=== PATIENT | male | born 1965 | race Hispanic/Latino ===

== ENCOUNTER 2018-12-15 14:10 | Inpatient (IN) | payer MEDICAID, OTHER ==
[2018-12-15 14:24] VITALS: BMI 22.5
[2018-12-15] MEDS ORDERED: Sodium Chloride 0.9% 500 ML IV STA (14:47)
--- NOTE | 2018-12-15 15:16 | ED PDOC ---
Arrival/HPI - General Chief Complaint: GI Problem Time Seen by Provider: 12/15/18 14:16 Historian: Patient - History of Present Illness Narrative History of Present Illness (Text): 12/15/18 15:08 52 year old M with pmh of Stage 4 oropharyngeal CA (diagnosed Apr 2018) presents for admission. Patient is an active smoker and drinker. Patient is being followed by Dr. Christian ears nose and throat specialist in [place] as well as Dr. Hughes. Patient was sent into the emergency room today for admission to start treatment. Pt states he has been having more difficulty swallowing. Pt states it is easier to swallow liquids. pt states he had recent PET scan. Family states that symptoms are unchanged since visit with dr. Reid on 12/08/18. Pt denies difficulty breathing. Patient denies any fevers, chills, headache, dizziness, chest pain, shortness of breath, dyspnea on exertion, cough, diaphoresis, abdominal pain, nausea, vomiting, diarrhea, back pain or any other complaint. Time/Duration: > month Symptom Onset: Sudden Symptom Course: Unchanged Activities at Onset: Light Context: Home Past Medical History - Provider Review Nursing Documentation Reviewed: Yes - Travel History Have you recently traveled outside US w/in the past 3 mons?: No - Psychiatric Hx Substance Use: No - Anesthesia Hx Anesthesia: Yes Family/Social History - Physician Review Nursing Documentation Reviewed: Yes Family/Social History: Unknown Family HX Smoking Status: Former Smoker Hx Alcohol Use: Yes Frequency of alcohol use: Socially Hx Substance Use: No Allergies/Home Meds Allergies/Adverse Reactions: Allergies No Known Allergies Allergy (Verified 12/15/18 18:08) Review of Systems - Physician Review All systems were reviewed & negative as marked: Yes - Review of Systems Constitutional: absent: Fatigue, Fevers ENT: Sore Throat. absent: Hearing Changes, Rhinorrhea, Epistaxis Respiratory: absent: SOB, Cough, Wheezing Cardiovascular: absent: Chest Pain, Palpitations, Edema, Syncope Gastrointestinal: absent: Abdominal Pain, Stool Changes, Constipation, Diarrhea, Nausea, Vomiting, Hematochezia, Hematemesis Genitourinary Male: absent: Dysuria, Hematuria Musculoskeletal: Neck Pain. absent: Arthralgias, Back Pain, Myalgias Skin: absent: Rash, Laceration Neurological: absent: Headache, Dizziness Psychiatric: Anxiety. absent: Depression, Suicidal Ideation Physical Exam Vital Signs Reviewed: Yes Vital Signs Temp Pulse Resp BP Pulse Ox 12/15/18 14:20 97.8 F 12/15/18 14:11 97.8 F 104 H 18 165/101 H 96 Temperature: Afebrile Blood Pressure: Hypertensive Pulse: Tachycardic Respiratory Rate: Normal Appearance: Positive for: Well-Appearing, Non-Toxic, Comfortable Pain Distress: None Mental Status: Positive for: Alert and Oriented X 3, other (anxious) - Systems Exam Head: Present: Atraumatic Conjunctiva: Present: Normal Mouth: Present: Moist Mucous Membranes Pharnyx: Present: Peritonsilar Swelling, Muffled/Hoarse Voice, Soft Palate/Uvular Edema, Other (there is a white plaque noted to the left posterior pharynx. ). No: Normal, Strider Neck: Present: Normal Range of Motion, Other (There is a large mass noted to the left side of the neck without surrounding erythema) Respiratory/Chest: Present: Clear to Auscultation, Good Air Exchange. No: Respiratory Distress, Accessory Muscle Use Cardiovascular: Present: Normal S1, S2, Tachycardic. No: Murmurs Abdomen: No: Tenderness Neurological: Present: GCS=15 Psychiatric: Present: Alert, Oriented x 3 Medical Decision Making ED Course and Treatment: 12/15/18 15:16 52-year-old male with oral pharyngeal cancer presenting for admission due to worsening dysphagia Plan: -- CT neck and Chest w/wo contrast -- Labs -- Xanax -- Reassess and disposition Prior Visits: Notes and results from previous visits were reviewed. Progress Notes: Case discussed with Dr. Downs in depth. Accepts admission to [facility]. Per request a CAT scan of the neck and chest with and without contrast has been ordered. CBC: WBC 18 cmp; wnl CT chest and neck; pending impression; oral pharyngeal CA, dysphagia Admit - RAD Interpretation Radiology Orders: 12/15/18 14:47 NECK & CHEST W/WO CONTRAST [CT] Stat - Medication Orders Current Medication Orders: Sodium Chloride (Sodium Chloride 0.9%) 500 mls @ 999 mls/hr IV .Q31M STA Stop: 12/15/18 15:17 Discontinued Medications Alprazolam (Xanax) 0.25 mg PO STAT STA; Protocol Stop: 12/15/18 14:48 Last Admin: 12/15/18 14:55 Dose: 0.25 mg - Scribe Statement The provider has reviewed the documentation as recorded by the Clovis Guaman All medical record entries made by the Clovis were at my direction and person ally dictated by me. I have reviewed the chart and agree that the record accurately reflects my personal performance of the history, physical exam, medical decision making, and the department course for this patient. I have also personally directed, reviewed, and agree with the discharge instructions and disposition. Disposition/Present on Arrival - Present on Arrival Any Indicators Present on Arrival: No History of DVT/PE: No History of Uncontrolled Diabetes: No Urinary Catheter: No History of Decub. Ulcer: No History Surgical Site Infection Following: None - Disposition Have Diagnosis and Disposition been Completed?: Yes Diagnosis: Dysphagia, Pharyngeal cancer, Oral-mouth cancer Disposition: HOSPITALIZED Disposition Time: 14:16 Patient Plan: Admission Patient Problems: Current Active Problems Problem Status Onset Dysphagia Acute Oral-mouth cancer Acute Pharyngeal cancer Acute Condition: GUARDED
--- NOTE | 2018-12-15 15:49 | CP.PCM.HP ---
<Lois Sylvester - Last Filed: 12/15/18 15:37> History of Present Illness - History of Present Illness History of Present Illness: Lois Sylvester, PGY-1, Internal Medicine History and Physical for Dr. Downs 52 year old male with past medical history of Head and Neck cancer, hypertension, tobacco abuse, and alcohol abuse presented status post Dr. Hughes calling his sister to bring him to the hospital for further workup and treatment of Head and Neck Cancer. Patient is originally from [place] but has been exploring treatment options in [place] as his sister lives in the area. Pat shanti reports that in July, patient started to have dysphagia to solid but not liquid and had a sharp pain in his left ear improved with position changes of his head. He associated tinnitus in that ear and reports hearing loss in his right ear. He also reports having coughing up tissue from his mouth which relieves the pain in his neck. He has now been able to eat. Patient also complains of being unsteady on his feet recently. He has had 50 pound weight loss since July. He denies any fevers or chills. In terms of the history of his Head and Neck cancer, patient initially saw Dr. Benoit in [place] who wanted to excise the tumor but patient denied wanting to have this surgery as he would have to have a tracheostomy which he did not want. As a result, he looked for other treatment options and came up to [place] for more treatment options. Upon coming to [place], he saw Dr. Reid, ENT, Dr. Hughes, Heme/Onc, and Dr. Jesus, Radiation Oncology. PET CT scan was performed on 11/11/18 at [facility] which was reported to show hypermetabolic mass/masses involving the left nasopharynx, left palatine tonsil and left side of the tongue. Patient presents to the hospital for PEG tube placement and beginning chemotherapy and radiation. 12-point ROS was unremarkable except for what was mentioned above. PMH: Hypertension, Head and Neck Cancer, Tobacco use, Alcohol use PSH: left inguinal hernia in 1988 FMHx: Father: lung cancer, Mother: breast cancer SHx: 1 PPD daily for 20-25 years. He reports daily drinking to avoid the pain. He reports occassional marijuana use Allergies: NKDA, has cat, hair, and dust allergy causing wheezing PMD: Dr. Johnston Medications: Magic Mouth Wash, was taking meloxicam before, and denies taking amlodipine at this time Pharmacy: currently [facility] [facility], but used to go to [facility] in [place], [place] Present on Admission - Present on Admission Any Indicators Present on Admission: No Review of Systems - Review of Systems Review of Systems: except for what was mentioned above Past Patient History - Past Social History Smoking Status: Former Smoker - PSYCHIATRIC Hx Substance Use: No - SURGICAL HISTORY Hx Surgeries: Yes Hx Herniorrhaphy: Yes - ANESTHESIA Hx Anesthesia: Yes Meds Allergies/Adverse Reactions: Allergies Allergy/AdvReac Type Severity Reaction Status Date / Time No Known Allergies Allergy Verified 12/15/18 18:08 Physical Exam - Constitutional Appears: Well, Non-toxic, No Acute Distress - Head Exam Head Exam: ATRAUMATIC, NORMAL INSPECTION, NORMOCEPHALIC - Eye Exam Eye Exam: EOMI, PERRL Pupil Exam: NORMAL ACCOMODATION - ENT Exam Additional comments: white plaques seen on upper palate in back on the mouth - Neck Exam Additional comments: large neck mass on left side of the head - Respiratory Exam Respiratory Exam: Clear to Auscultation Bilateral, NORMAL BREATHING PATTERN. absent: Rales, Rhonchi, Wheezes - Cardiovascular Exam Cardiovascular Exam: REGULAR RHYTHM, RRR, +S1, +S2. absent: Clicks, Gallop, Rubs - GI/Abdominal Exam GI & Abdominal Exam: Normal Bowel Sounds, Soft. absent: Distended, Firm, Guarding, Tenderness - Extremities Exam Extremities exam: Positive for: full ROM, normal inspection. Negative for: tenderness - Neurological Exam Neurological exam: Alert, CN II-XII Intact, Normal Gait, Oriented x3 - Psychiatric Exam Psychiatric exam: Normal Affect, Normal Mood - Skin Skin Exam: Dry, Intact, Normal Color Results - Vital Signs Recent Vital Signs: Last Vital Signs Temp 97.8 F 12/15/18 14:20 Pulse 104 H 12/15/18 14:11 Resp 18 12/15/18 14:11 BP 165/101 H 12/15/18 14:11 Pulse Ox 96 12/15/18 14:11 Assessment & Plan - Assessment and Plan (Free Text) Assessment: 52 year old male with past medical history of Head and Neck cancer, hypertension, tobacco abuse, and alcohol abuse presented status post Dr. Hughes calling his sister to bring him to the hospital for further workup and treatment of Head and Neck Cancer. Plan: Squamous cell carcinoma of the left tonsil -Prior PET scan from 11/10: hypermetabolic mass/masses involving the left n asopharynx, left palatine tonsil and left side of the tongue -Patient will be made NPO -Start LR at 100cc/hr -Speech and swallow evaluation -GI, Dr. Stearns, consulted for recommendations -Heme/Onc, Dr. Hughes, consulted for recommendations -Radiation Oncology, Dr. Jesus, consulted for recommendations. Hypertension -Started amlodipine 5 mg with holding parameters with SBP<100 Tobacco abuse -Counseled patient regarding dangers of tobacco use. Smoking cessation advised -Started nicotine patch DVT prophylaxis: subcutaneous heparin 5000 U Q8 Patient seen, case discussed with, and plan approved by Dr. Downs. - Date & Time Date: 12/15/18 Time: 15:52 <Sofia Downs - Last Filed: 12/16/18 14:42> Results - Vital Signs Recent Vital Signs: Last Vital Signs Temp 97.8 F 12/16/18 08:04 Pulse 84 12/16/18 08:04 Resp 20 12/16/18 08:04 BP 166/86 H 12/16/18 08:04 Pulse Ox 95 12/16/18 08:04 - Labs Result Diagrams: 12/15/18 16:20 12/15/18 16:20 Labs: Laboratory Results - last 24 hr 12/15/18 12/15/18 12/15/18 16:20 16:20 16:20 WBC 18.0 H RBC 5.17 Hgb 16.2 Hct 48.0 MCV 92.8 MCH 31.3 MCHC 33.8 RDW 13.2 Plt Count 373 MPV 9.1 Neut % (Auto) 87.0 H Lymph % (Auto) 5.6 L [place] % (Auto) 6.6 H Eos % (Auto) 0.3 L Baso % (Auto) 0.5 Lymph # (Auto) 1.0 L [place] # (Auto) 1.2 H Eos # (Auto) 0.1 Baso # (Auto) 0.09 Absolute Neuts (auto) 15.68 H PT 13.2 H INR 1.19 APTT 37.9 Sodium 140 Potassium 4.1 Chloride 102 Carbon Dioxide 28 Anion Gap 14 BUN 8 Creatinine 0.6 L Est GFR ( Amer) > 60 Est GFR (Non-Af Amer) > 60 Random Glucose 110 Hemoglobin A1c Calcium 9.4 Total Bilirubin 0.6 AST 47 ALT 28 Alkaline Phosphatase 125 Total Protein 8.0 Albumin 4.0 Globulin 4.0 Albumin/Globulin Ratio 1.0 L Triglycerides 115 Cholesterol 149 LDL Cholesterol Direct 64 HDL Cholesterol 70 H 12/15/18 16:20 WBC RBC Hgb Hct MCV MCH MCHC RDW Plt Count MPV Neut % (Auto) Lymph % (Auto) [place] % (Auto) Eos % (Auto) Baso % (Auto) Lymph # (Auto) [place] # (Auto) Eos # (Auto) Baso # (Auto) Absolute Neuts (auto) PT INR APTT Sodium Potassium Chloride Carbon Dioxide Anion Gap BUN Creatinine Est GFR ( Amer) Est GFR (Non-Af Amer) Random Glucose Hemoglobin A1c 6.4 Calcium Total Bilirubin AST ALT Alkaline Phosphatase Total Protein Albumin Globulin Albumin/Globulin Ratio Triglycerides Cholesterol LDL Cholesterol Direct HDL Cholesterol Attending/Attestation - Attestation I have personally seen and examined this patient.: Yes I have fully participated in the care of the patient.: Yes I have reviewed all pertinent clinical information: Yes Notes (Text): Attending note; patient Seen and examined with resident in ER. Patient sister by the bedside. Patient is alert and awake. Complaining of worsening of the left-sided neck swelling. Patient also complaining of increasing dysphagia. Currently tolerating liquid diets. Patient has difficulty swallowing solid food. Denies any fevers, chills. Denies any nausea, vomiting. Denies any diarrhea. Patient is a 52 year old male with past medical history of Head and Neck cancer, hypertension, tobacco abuse, and alcohol abuse getting admitted for worsening of the left-sided neck swelling and dysphagia. 1. 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 Patient was diagnosed with carcinoma in [place]. Currently patient follows up with Dr. Hughes. PET CT scan was performed on 11/11/18 showed hypermetabolic mass/masses involving the left nasopharynx, left palatine tonsil and left side of the tongue. Started on liquid diet. Aspiration precautions explained. Speech and swallow evaluation requested. Will get GI evaluation for PEG placement. 2. Case discussed with radiation oncology Dr. Jesus in detail. CT of neck and chest ordered. 3. Active smoking; smoking cessation is strongly advised . Started on NicoDerm patch. 4. Alcohol abuse; complete alcohol cessation is strongly advised. 5. Anxiety; Started on IV Ativan. The diagnosis, treatment option explained to the patient in detail. Upon discharge patient will follow-up with Dr. Hughes. 12/16/18 14:41
[2018-12-15 16:29] LABS: BASO # 0.09 K/mm3 (0.0-2.0); BASO % 0.5 % (0.0-3.0); EOS # 0.1 (0.0-0.7); EOS % 0.3 % (1.5-5.0); HEMOGLOBIN 16.2 g/dL (14.0-18.0); LYMPH % 5.6 % (22.0-35.0); MEAN CELL VOLUME 92.8 fl (80.0-105.0); MEAN CORPUSCULAR HEMOGLOBIN 31.3 pg (25.0-35.0); MEAN CORPUSCULAR HGB CONC 33.8 g/dl (31.0-37.0); MEAN PLATELET VOLUME 9.1 fl (7.0-11.0); MONO # 1.2 (0.1-0.6); MONO % 6.6 % (1.0-6.0); RBC 5.17 10^6/uL (3.5-6.1); RED CELL DISTRIBUTION WIDTH 13.2 % (11.5-14.5)
[2018-12-15 16:33] LABS: INR 1.19; PARTIAL THROMBOPLASTIN TIME 37.9 Seconds (26.9-38.3); PROTHROMBIN TIME 13.2 SECONDS (9.4-12.5)
[2018-12-15 16:36] LABS: ALT/SGPT 28 U/L (7-56); AST/SGOT 47 U/L (17-59); BLOOD UREA NITROGEN 8 mg/dL (7-21); CALCIUM 9.4 mg/dL (8.4-10.5); GFR NON-AFRICAN AMERICAN > 60; HDL CHOLESTEROL 70 mg/dL (29-60)
[2018-12-15 16:47] LABS: LDL CHOLESTEROL 64 mg/dL (0-129)
[2018-12-15] MEDS: Lactated Ringer's 1,000 ML IV SCH (17:11)
[2018-12-15] MEDS ORDERED: Albuterol-Ipratrop 3 mg / 0.5 (3 ml) UD IH PRN (18:10)
[2018-12-15] MEDS ORDERED: Acetaminophen 160 mg/5 ml UD PO PRN (19:53)
--- NOTE | 2018-12-15 21:16 | CARD ---
APPROVED REPORT Date of service: 12/15/2018 EKG Measurement Heart [id number] <Conclusion> Sinus tachycardia Left axis deviation Abnormal ECG
[2018-12-15] MEDS ORDERED: Pneumococcal 23-Valent Vaccine IM ONE (21:18)
--- NOTE | 2018-12-16 03:35 | CON ---
DATE: 12/15/2018 This is [facility] consult on the medical floor. For Dr. Hughes. CHIEF COMPLAINT: Head and neck cancer. HISTORY OF PRESENT ILLNESS: The patient is a 52-year-old male with recently diagnosed head and neck cancer at advanced stage for which he is now admitted for initiation of active treatment including radiation and chemotherapy as per Dr. Hughes's protocols. The patient had initially been diagnosed while residing in the [facility], but was not amenable to treatment at that time since the tracheostomy was recommended by his clinician there. To this end, the patient's PET/CT scan was done on 11/11/2018 with the copy now uploaded into the [employer] system for review with the patient now reporting weight loss of approximately 30 pounds with significant discomfort to the left side of his mouth and neck. Unfortunately, the patient reports to significant smoking history and continues to smoke with the patient admitting to drinking Jovan Bulter and beer on a daily basis. He is seen at the bedside with family members with questions answered as above. PAST MEDICAL HISTORY: Significant for hernia repair in 1988, hypertension; otherwise, denied. FAMILY HISTORY: Father of lung cancer. Mother of breast cancer. His sister is at the bedside. SOCIAL HISTORY: He smokes one pack a day for approximately 25 years with alcohol use as mentioned above. Occasional marijuana use. ALLERGIES: NO KNOWN ALLERGIES EXCEPT FOR DUST AND FUR. MEDICATIONS: At this point include amlodipine, meloxicam, and Magic Mouthwash. REVIEW OF SYSTEMS: A 12-point review of systems was done, which is negative to questioning except for items mentioned in the history of present illness. PHYSICAL EXAMINATION: VITAL SIGNS: Temperature 97.8, pulse 89, respirations 18, blood pressure 164/94, and pulse ox 93%. HEENT: Mass at the left side of the neck and head, firm and nontender. Also difficulty opening the oropharynx with plaques and palate on the left side of his mouth with minimal peritonsillar swelling. Speaks in a muffled hoarse voice. No stridor. HEART: Regular rate. LUNGS: Clear. ABDOMEN: Soft and nontender. EXTREMITIES: No edema. SKIN: Warm and dry. NEUROLOGIC: Awake and alert with voice change as above. LABORATORY DATA: The patient's labs were done. White blood cell count 18, hemoglobin of 16.2, hematocrit of 48, and platelet count of 373,000 with an INR of 1.19. Metabolic panel within normal range. The patient did have an EKG done that has not been read. Soft tissue scan of the neck is also pending along with CT scan of the chest pending. PET/CT scan results were uploaded into [employer] and recommended to review the results with the unfortunate hypermetabolic mass involving the left nasopharynx, left palatine tonsil, left side of the tongue. ASSESSMENT: For this patient is that of head and neck cancer involving left nasopharynx, left palatine tonsils, and tongue, hypertension, failure to thrive, alcohol abuse, nicotine abuse, insomnia, and anxiety. PLAN: After conversation with Dr. Hughes, conversation at length with the patient and his family members as per consults with Radiation Oncology Dr. Yuliet Jesus, Dr. Stearns for PEG tube placement, Dr. Ervin of ears, nose, throat, associate of Dr. Reid, and also Dr. Hassan of Pulmonary. We will continue his present medical regimen; however, we will recommend Librium every 12 hours with Ativan IV for breakthrough possible withdrawal from alcohol along with vitamin B1, folic acid with morphine IV every 6 hours for severe pain along with Tylenol liquid for mild pain with the patient being able to take medications orally with sips of water as indicated; otherwise, n.p.o. We will wait for results of testing as above with further recommendations as indicated with PEG tube placement for nutrition as indicated. We will discontinue the heparin as the patient is ambulatory at this time with consideration to restart it at a later time should have been indicated with nicotine patch to continue for his nicotine cessation with EtOH withdrawal precautions. This is a complex patient with a comprehensive medically necessary and appropriate visit carried out in excess of 60 minutes with the patient and family members questions answered to their satisfaction. Leonardo Ramírez MD
[2018-12-16] MEDS: Lactated Ringer's 1,000 ML IV SCH (05:48)
--- NOTE | 2018-12-16 08:55 | CP.PCM.CON ---
History of Present Illness - History of Present Illness History of Present Illness: Mr Wang is known to our department. We saw him officially in consult on November 12, 2018 for his head and neck cancer. He initially presented in April of 2018 with whitish substance and swelling on the left tonsil. He reached out to an online physician who stated it was thrush. The doctor recommended antifungal, and the patient reported slight improvement. However, once the antifungal finished, the whitish substance return ed. The online doctor wanted more money for the prescription refill which he did not want to do. Over the subsequent months, he had increasing swelling of the left tonsil as well as swelling of the left soft palate and left oral tongue. He also was having pain in the left ear with swallowing. Also at that point, he saw an ENT doctor in [place]. The ENT physician performed a FNA on October 04, 2018 which revealed atypical cells. He recommended him to an oncologist. However, he decided at that point to come to [place] where his sister lives to seek further medical attention. On examination with Dr Reid, he had a left level II-IV lymph node as well as a mass in the left tonsillar region with extension to the soft palate and base of tongue. He refused a repeat biopsy of the mass. A PET scan in [place] on November 11, 2018 revealed a hypermetabolic mass in the left nasopharynx, left palatine tonsil and left side of the tongue. When we last saw him, he and his family was trying to get insurance since he is not from [place] and did not have insurance. He is currently in the process of getting coverage. He is admitted with worsening symptoms and progression from his disease. He had a CT of the neck and chest since he was admitted yesterday because his PET scan was done a few months prior and he has had obvious progression Review of Systems - Constitutional Constitutional: Weight Loss - EENT Nose/Mouth/Throat: Odynophagia, Sore Throat Past Patient History - Past Social History Smoking Status: Former Smoker Alcohol: None Home Situation {Lives}: With Family - CARDIAC Hx Cardiac Disorders: Yes Hx Hypertension: Yes - PULMONARY Hx Respiratory Disorders: No - NEUROLOGICAL Hx Neurological Disorder: Yes - HEENT Hx HEENT Problems: Yes Hx Deafness: Yes (R EAR) - RENAL Hx Chronic Kidney Disease: No - ENDOCRINE/METABOLIC Hx Endocrine Disorders: No - HEMATOLOGICAL/ONCOLOGICAL Hx Blood Disorders: Yes Hx Cancer: Yes (OROPHARYNGEAL CA PLAN FOR PEG PLACEMENT) - INTEGUMENTARY Hx Dermatological Problems: Yes Other/Comment: 12-15 LARGE MASS L SIDE OF NECK W/SURROUNDING ERYTHEMA. - MUSCULOSKELETAL/RHEUMATOLOGICAL Hx Musculoskeletal Disorders: No Hx Falls: No - GASTROINTESTINAL Hx Gastrointestinal Disorders: Yes (L INGUINAL HERNIA WITH HERNIORHAPPHY) HX Swallowing Problems: Yes - GENITOURINARY/GYNECOLOGICAL Hx Genitourinary Disorders: No - PSYCHIATRIC Hx Psychophysiologic Disorder: No Hx Substance Use: Yes (OCCASIONAL MARIJUANA) - SURGICAL HISTORY Hx Surgeries: Yes - ANESTHESIA Hx Anesthesia: Yes Meds Allergies/Adverse Reactions: Allergies Allergy/AdvReac Type Severity Reaction Status Date / Time No Known Allergies Allergy Verified 12/15/18 18:08 - Medications Medications: Current Medications Acetaminophen (Tylenol 160mg/5ml Oral Soln) 320 mg PO Q4 PRN PRN Reason: Pain, Mild (1-3) Albuterol/Ipratropium (Duoneb 3 Mg/0.5 Mg (3 Ml) Ud) 3 ml IH Q4 PRN PRN Reason: Shortness of Breath Amlodipine Besylate (Norvasc) 5 mg PO DAILY [facility] Chlordiazepoxide (Librium) 10 mg PO Q12 AYESHA; Protocol Last Admin: 12/15/18 21:39 Dose: Not Given Folic Acid (Folic Acid) 1 mg PO DAILY [facility] Lactated Ringer's (Lactated Ringer's) 1,000 mls @ 100 mls/hr IV .Q10H [facility] Last Admin: 12/16/18 05:48 Dose: 100 mls/hr Lorazepam (Ativan) 0.5 mg IVP Q8 PRN; Protocol PRN Reason: Anxiety Morphine Sulfate (Morphine) 2 mg IVP Q6H PRN PRN Reason: Pain, severe (8-10) Nicotine (Nicoderm Cq) 1 patch TD DAILY PRN PRN Reason: URGE TO SMOKE Last Admin: 12/15/18 16:54 Dose: 1 patch Pantoprazole Sodium (Protonix Inj) 40 mg IVP DAILY [facility] Thiamine HCl (Vitamin B1 Tab) 100 mg PO BID [facility] Last Admin: 12/15/18 21:38 Dose: 100 mg Zolpidem Tartrate (Ambien) 5 mg PO HS PRN; Protocol PRN Reason: Insomnia Last Admin: 12/15/18 22:16 Dose: 5 mg Physical Exam - ENT Exam Additional comments: erosive mass involving the left tonsillar fossa, base of tongue and extending to the soft palate. There is edema of the left oral tongue but no induration anteriorly. - Neck Exam Additional comments: large left neck mass measuring 9 x 9cm in the level II-III region - Respiratory Exam Respiratory Exam: Clear to Auscultation Bilateral - Cardiovascular Exam Cardiovascular Exam: REGULAR RHYTHM - GI/Abdominal Exam GI & Abdominal Exam: Normal Bowel Sounds - Neurological Exam Neurological exam: Oriented x3 Results - Vital Signs Recent Vital Signs: Last Vital Signs Temp 97.8 F 12/16/18 08:04 Pulse 84 12/16/18 08:04 Resp 20 12/16/18 08:04 BP 166/86 H 12/16/18 08:04 Pulse Ox 95 12/16/18 08:04 - Labs Result Diagrams: 12/15/18 16:20 12/15/18 16:20 Labs: Laboratory Results - last 24 hr 12/15/18 12/15/18 12/15/18 16:20 16:20 16:20 WBC 18.0 H RBC 5.17 Hgb 16.2 Hct 48.0 MCV 92.8 MCH 31.3 MCHC 33.8 RDW 13.2 Plt Count 373 MPV 9.1 Neut % (Auto) 87.0 H Lymph % (Auto) 5.6 L Dawson % (Auto) 6.6 H Eos % (Auto) 0.3 L Baso % (Auto) 0.5 Lymph # (Auto) 1.0 L Dawson # (Auto) 1.2 H Eos # (Auto) 0.1 Baso # (Auto) 0.09 Absolute Neuts (auto) 15.68 H PT 13.2 H INR 1.19 APTT 37.9 Sodium 140 Potassium 4.1 Chloride 102 Carbon Dioxide 28 Anion Gap 14 BUN 8 Creatinine 0.6 L Est GFR ( Amer) > 60 Est GFR (Non-Af Amer) > 60 Random Glucose 110 Calcium 9.4 Total Bilirubin 0.6 AST 47 ALT 28 Alkaline Phosphatase 125 Total Protein 8.0 Albumin 4.0 Globulin 4.0 Albumin/Globulin Ratio 1.0 L Triglycerides 115 Cholesterol 149 LDL Cholesterol Direct 64 HDL Cholesterol 70 H Assessment & Plan - Assessment and Plan (Free Text) Assessment: Mr Wang is a 52 year old man with a locally advanced oropharyngeal cancer. He had a repeat CT of the neck and chest to assess the extent of his disease since he has not had treatment since we saw him last in October due to insurance issues because he is not from [place]. He is having worsening symptoms and obvious disease progression. He will be getting PEG tube. We simulated him today, and will coordinate his chemoradiation with Dr Hughes.
[2018-12-16] MEDS ORDERED: guaiFENesin-Codeine 100-10mg/5ml Syrup (5 ml) UD PO PRN (10:28)
--- NOTE | 2018-12-16 11:48 | CP.PCM.PN ---
<Lois Sylvester - Last Filed: 12/16/18 11:45> Subjective - Date & Time of Evaluation Date of Evaluation: 12/16/18 Time of Evaluation: 11:45 - Subjective Subjective: Lois Sylvester, PGY-1, Internal Medicine Progress Note for Dr. Downs Patient seen and evaluated at bedside. Patient had no acute overnight events. Patient reports inability to sleep last night and left ear pain. Patient also had cough at bedside, but did not have any sputum production. Patient denies any other symptoms at this time. Patient is claustrophobic and as a result, will give patient 1 mg of ativan prior to imaging today. 12-point ROS was unrema rkable except for what was mentioned above. Objective - Vital Signs/Intake and Output Vital Signs (last 24 hours): Temp Pulse Resp BP Pulse Ox 97.8 F 84 20 166/86 H 95 12/16/18 08:04 12/16/18 08:04 12/16/18 08:04 12/16/18 08:04 12/16/18 08:04 Intake and Output: 12/16/18 12/16/18 06:59 18:59 Intake Total 1860 Balance 1860 - Medications Medications: Current Medications Acetaminophen (Tylenol 160mg/5ml Oral Soln) 320 mg PO Q4 PRN PRN Reason: Pain, Mild (1-3) Albuterol/Ipratropium (Duoneb 3 Mg/0.5 Mg (3 Ml) Ud) 3 ml IH Q4 PRN PRN Reason: Shortness of Breath Amlodipine Besylate (Norvasc) 5 mg PO DAILY [facility] Last Admin: 12/16/18 10:20 Dose: 5 mg Chlordiazepoxide (Librium) 10 mg PO Q12 [facility]; Protocol Last Admin: 12/16/18 11:00 Dose: Not Given Folic Acid (Folic Acid) 1 mg PO DAILY [facility] Last Admin: 12/16/18 10:19 Dose: 1 mg Guaifenesin/Codeine Phosphate (Robitussin W/Codeine) 5 ml PO Q4H PRN PRN Reason: Cough and congestion Lorazepam (Ativan) 0.5 mg IVP Q8 PRN; Protocol PRN Reason: Anxiety Last Admin: 12/16/18 10:17 Dose: 0.5 mg Morphine Sulfate (Morphine) 2 mg IVP Q6H PRN PRN Reason: Pain, severe (8-10) Nicotine (Nicoderm Cq) 1 patch TD DAILY PRN PRN Reason: URGE TO SMOKE Last Admin: 12/16/18 10:19 Dose: 1 patch Pantoprazole Sodium (Protonix Inj) 40 mg IVP DAILY [facility] Last Admin: 12/16/18 10:20 Dose: 40 mg Thiamine HCl (Vitamin B1 Tab) 100 mg PO BID [facility] Last Admin: 12/16/18 10:20 Dose: 100 mg Zolpidem Tartrate (Ambien) 5 mg PO HS PRN; Protocol PRN Reason: Insomnia Last Admin: 12/15/18 22:16 Dose: 5 mg - Labs Labs: 12/15/18 16:20 12/15/18 16:20 PT 13.2 SECONDS (9.4-12.5) H 12/15/18 16:20 INR 1.19 12/15/18 16:20 APTT 37.9 Seconds (26.9-38.3) 12/15/18 16:20 - Constitutional Appears: Well, Non-toxic, No Acute Distress - Head Exam Head Exam: ATRAUMATIC, NORMAL INSPECTION, NORMOCEPHALIC - Eye Exam Eye Exam: EOMI, PERRL Pupil Exam: NORMAL ACCOMODATION - ENT Exam Additional comments: white plaques seen on upper palate in back on the mouth - Neck Exam Additional comments: large neck mass on left side of the head - Respiratory Exam Respiratory Exam: Clear to Auscultation Bilateral, NORMAL BREATHING PATTERN. absent: Rales, Rhonchi, Wheezes - Cardiovascular Exam Cardiovascular Exam: REGULAR RHYTHM, RRR, +S1, +S2. absent: Clicks, Gallop, Rubs - GI/Abdominal Exam GI & Abdominal Exam: Normal Bowel Sounds, Soft. absent: Distended, Firm, Guarding, Tenderness - Extremities Exam Extremities exam: Positive for: full ROM, normal inspection. Negative for: tenderness - Neurological Exam Neurological exam: Alert, CN II-XII Intact, Normal Gait, Oriented x3 - Psychiatric Exam Psychiatric exam: Normal Affect, Normal Mood - Skin Skin Exam: Dry, Intact, Normal Color Assessment and Plan - Assessment and Plan (Free Text) Assessment: 52 year old male with past medical history of Head and Neck cancer, hypertension, tobacco abuse, and alcohol abuse presented status post Dr. Hughes calling his sister to bring him to the hospital for further workup and treatment of Head and Neck Cancer. Plan: Squamous cell carcinoma of the left tonsil -Prior PET scan from 11/10: hypermetabolic mass/masses involving the left nasopharynx, left palatine tonsil and left side of the tongue -CT Neck with and without IV contrast 12/15: left oral pharyngeal/left supraglottic malignancy. Additional large neoplasm in the soft tissues of the left neck with possible cystic necrotic lymphadenopathy, atheromatous plaquing in the carotid bulbs and origins of the ICAs bilaterally. Evidence of advanced degenerative disc disease at C5-6, C6-7, and C7-T1 -Chest CT 12/15: unremarkable -MRI of orbit, face, and neck ordered for further evaluation of tumor -Patient currently on Clear liquid diet -Speech and swallow evaluation ordered -Started robitussin with codeine Q4PRN for pain and congestion -Continue morphine 2 mg Q6PRN for breakthrough pain -Plan is for PEG tube evaluation with Dr. Stearns -Chemoradiation will be coordinated with Dr. Hughes and Dr. Jesus -GI, Dr. Stearns, consulted for recommendations -Heme/Onc, Dr. Hughes, consulted for recommendations -Radiation Oncology, Dr. Jesus, consulted for recommendations. -ENT, Dr. Ervin, consulted for further recommendations. -IR, Dr. Sifuentes, consulted for further recommendations. -Pulmonology, Dr. Hassan, consulted for further recommendations. Hypertension -Continue amlodipine 5 mg with holding parameters with SBP<100 Tobacco abuse -Counseled patient regarding dangers of tobacco use. Smoking cessation advised -Continue nicotine patch Rule out alcohol withdrawal -Patient's CIWA has been 0 -Continue librium 10 mg Q12 and ativan 0.5 mg Q8PRN for withdrawal symptoms -Continue with thiamine, folate, and MVI Insomnia -Ambien 5 mg HS PRN for insomnia Shortness of breath 2/2 to likely COPD -Continue duonebs Q4PRN DVT prophylaxis: not indicated GI prophylaxis: protonix 40 mg daily Patient seen, case discussed with, and plan approved by Dr. Downs. <Sofia Downs - Last Filed: 12/16/18 15:49> Objective - Vital Signs/Intake and Output Vital Signs (last 24 hours): Temp Pulse Resp BP Pulse Ox 97.8 F 84 20 166/86 H 95 12/16/18 08:04 12/16/18 08:04 12/16/18 08:04 12/16/18 08:04 12/16/18 08:04 Intake and Output: 12/16/18 12/16/18 06:59 18:59 Intake Total 1860 Balance 1860 - Medications Medications: Current Medications Acetaminophen (Tylenol 160mg/5ml Oral Soln) 320 mg PO Q4 PRN PRN Reason: Pain, Mild (1-3) Albuterol/Ipratropium (Duoneb 3 Mg/0.5 Mg (3 Ml) Ud) 3 ml IH Q4 PRN PRN Reason: Shortness of Breath Amlodipine Besylate (Norvasc) 5 mg PO DAILY [facility] Last Admin: 12/16/18 10:20 Dose: 5 mg Arformoterol Tartrate (Brovana) 15 mcg IH [id number] [facility] Budesonide (Pulmicort Respules) 0.5 mg IH [id number] [facility] Chlordiazepoxide (Librium) 10 mg PO Q12 [facility]; Protocol Last Admin: 12/16/18 11:00 Dose: Not Given Fluticasone Propionate (Flonase) 1 actuation NS HS [facility] Folic Acid (Folic Acid) 1 mg PO DAILY [facility] Last Admin: 12/16/18 10:19 Dose: 1 mg Guaifenesin/Codeine Phosphate (Robitussin W/Codeine) 5 ml PO Q4H PRN PRN Reason: Cough and congestion Lorazepam (Ativan) 0.5 mg IVP Q8 PRN; Protocol PRN Reason: Anxiety Last Admin: 12/16/18 10:17 Dose: 0.5 mg Montelukast Sodium (Singulair) 10 mg PO HS [facility] Morphine Sulfate (Morphine) 2 mg IVP Q6H PRN PRN Reason: Pain, severe (8-10) Multivitamins/Vitamin C (Multi-Delyn Liquid) 15 ml PO 0800 [facility] Nicotine (Nicoderm Cq) 1 patch TD DAILY PRN PRN Reason: URGE TO SMOKE Last Admin: 12/16/18 10:19 Dose: 1 patch Pantoprazole Sodium (Protonix Inj) 40 mg IVP DAILY [facility] Last Admin: 12/16/18 10:20 Dose: 40 mg Thiamine HCl (Vitamin B1 Tab) 100 mg PO BID [facility] Last Admin: 12/16/18 10:20 Dose: 100 mg Zolpidem Tartrate (Ambien) 5 mg PO HS PRN; Protocol PRN Reason: Insomnia Last Admin: 12/15/18 22:16 Dose: 5 mg - Labs Labs: 12/15/18 16:20 12/15/18 16:20 PT 13.2 SECONDS (9.4-12.5) H 12/15/18 16:20 INR 1.19 12/15/18 16:20 APTT 37.9 Seconds (26.9-38.3) 12/15/18 16:20 Attending/Attestation - Attestation I have personally seen and examined this patient.: Yes I have fully participated in the care of the patient.: Yes I have reviewed all pertinent clinical information, including history, physical exam and plan: Yes Notes (Text): 12/16/18 14:44 Attending note; patient Seen and examined with resident. Patient is alert and awake. Still complaining of dysphagia. currently tolerating liquid diets. Denies any fevers, chills. Denies any nausea, vomiting. Patient is a 52 year old male with past medical history of Head and Neck cancer, hypertension, tobacco abuse, and alcohol abuse getting admitted for worsening of the left-sided neck swelling and dysphagia. 1. 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 Patient was diagnosed with carcinoma in [place] in June. Currently patient follows up with Dr. Hughes. PET CT scan was performed on 11/11/18 showed hypermetabolic mass/masses involving the left nasopharynx, left palatine tonsil and left side of the tongue. Started on liquid diet. Aspiration precautions explained. Speech and swallow evaluation appreciated. Started on pured diet. GI evaluation appreciated. Plan for PEG placement tomorrow. 2. Case discussed with radiation oncology Dr. Jesus in detail. CT of neck and chest showed diffused centrilobar emphysema and large left oropharyngeal mass with multiple metastatic lymph nodes. MRI of the face and orbit ordered. 3. Active smoking; smoking cessation is strongly advised . Started on NicoDerm patch. 4. Alcohol abuse; complete alcohol cessation is strongly advised. 5. Anxiety; Started on IV Ativan. 6. Pain management with IV morphine. Robitussin with codeine ordered. The diagnosis, treatment option explained to the patient in detail. Upon discharge patient will follow-up with Dr. Hughes.
--- NOTE | 2018-12-16 12:54 | CT ---
Date of service: 12/15/2018 PROCEDURE: CT chest without and with intravenous contrast. HISTORY: LEFT SIDED ORAL PHARYNGEAL CA COMPARISON: None available. INDICATION: Oropharyngeal carcinoma TECHNIQUE: Contiguous axial images were obtained through the chest before and after intravenous contrast enhancement. Sagittal and coronal reconstructions were performed. IV contrast: 150 mL Omnipaque 350 Radiation dose: Total exam DLP = 1408.27 mGy-cm. This CT exam was performed using one or more of the following dose reduction techniques: Automated exposure control, adjustment of the mA and/or kV according to patient size, and/or use of iterative reconstruction technique FINDINGS: LUNGS: The lungs are hyperinflated and there is diffuse centrilobular emphysema in the lungs. There is bibasilar atelectasis. There are scattered tiny peripheral nodules in both lungs. There are no endobronchial lesions. MEDIASTINUM: There aneurysm of the ascending aorta measuring 4.6 x 4.2 cm. Normal sized heart. Main pulmonary artery unremarkable. No vascular congestion. No lymphadenopathy. There are aortic atherosclerotic calcifications present. PLEURA: No pleural fluid. No pneumothorax. BONES: No fracture. No destructive lesion. Multilevel degenerative changes in the spine UPPER ABDOMEN: There is a 1.3 cm adenoma in the left adrenal gland. There is an incompletely imaged simple cyst in the left kidney. OTHER FINDINGS: None. IMPRESSION: 1. Diffuse centrilobular emphysema in the lungs. Scattered tiny peripheral nodules in the lungs are likely post inflammatory in etiology. 2. Aneurysm of the ascending aorta measuring 4.6 x 4.2 cm. A preliminary report was provided by [employer]. The final report is tagged to the [place] review folder.
--- NOTE | 2018-12-16 13:16 | CP.PCM.CON ---
<Franklin Laneg - Last Filed: 12/16/18 16:33> History of Present Illness - History of Present Illness History of Present Illness: PGY6 GI Fellow Consult Note Patient is a 52yo male with PMHX significant for squamous cell carcinoma of the tongue, tonsil and nasopharynx as well as hypertension and tobacco/EtOH abuse who presented to the hospital as the recommendation of his oncologist for dete rioration /2 his known oropharyngeal malignancy. Patient's initial work up took place in [place] prior to moving to [place]. He first noticed odynophagia/dysphagia in April 2018 and was noted to have white plaques on the posterior pharynx. Following a course of antifungal therapy he only had modest improvement and symptoms recurred. He then developed swelling of the left tonsil and tongue associated with left ear pain and tinnitus. He was worked up by an ENT with FNA of the lesion revealing atypical cells and was referred to an oncologist which he has done since moving to [place]. Since July he notes a 50lb weight loss and progressive dysphagia to solids and liquids. Currently, he tolerates liquids if he drinks slowly. Our service has been consulted for PEG evaluation. 12 system ROS performed and negative except where stated PMHx: See HPI PSHx: Left inguinal hernia repair FHx: Mother - breast cancer; Father - lung cancer Social: +tobacco and EtOH use daily, occasional marijuana use Endo: No prior endoscopic evaluations Past Patient History - Past Social History Smoking Status: Former Smoker Alcohol: None Home Situation {Lives}: With Family - CARDIAC Hx Cardiac Disorders: Yes Hx Hypertension: Yes - PULMONARY Hx Respiratory Disorders: No - NEUROLOGICAL Hx Neurological Disorder: Yes - HEENT Hx HEENT Problems: Yes Hx Deafness: Yes (R EAR) - RENAL Hx Chronic Kidney Disease: No - ENDOCRINE/METABOLIC Hx Endocrine Disorders: No - HEMATOLOGICAL/ONCOLOGICAL Hx Blood Disorders: Yes Hx Cancer: Yes (OROPHARYNGEAL CA PLAN FOR PEG PLACEMENT) - INTEGUMENTARY Hx Dermatological Problems: Yes Other/Comment: 5 19 LARGE MASS L SIDE OF NECK W/SURROUNDING ERYTHEMA. - MUSCULOSKELETAL/RHEUMATOLOGICAL Hx Musculoskeletal Disorders: No Hx Falls: No - GASTROINTESTINAL Hx Gastrointestinal Disorders: Yes (L INGUINAL HERNIA WITH HERNIORHAPPHY) HX Swallowing Problems: Yes - GENITOURINARY/GYNECOLOGICAL Hx Genitourinary Disorders: No - PSYCHIATRIC Hx Psychophysiologic Disorder: No Hx Substance Use: Yes (OCCASIONAL MARIJUANA) - SURGICAL HISTORY Hx Surgeries: Yes - ANESTHESIA Hx Anesthesia: Yes Meds Allergies/Adverse Reactions: Allergies Allergy/AdvReac Type Severity Reaction Status Date / Time No Known Allergies Allergy Verified 12/15/18 18:08 - Medications Medications: Current Medications Acetaminophen (Tylenol 160mg/5ml Oral Soln) 320 mg PO Q4 PRN PRN Reason: Pain, Mild (1-3) Albuterol/Ipratropium (Duoneb 3 Mg/0.5 Mg (3 Ml) Ud) 3 ml IH Q4 PRN PRN Reason: Shortness of Breath Amlodipine Besylate (Norvasc) 5 mg PO DAILY [facility] Last Admin: 12/16/18 10:20 Dose: 5 mg Arformoterol Tartrate (Brovana) 15 mcg IH [id number] [facility] Budesonide (Pulmicort Respules) 0.5 mg IH [id number] [facility] Chlordiazepoxide (Librium) 10 mg PO Q12 [facility]; Protocol Last Admin: 12/16/18 11:00 Dose: Not Given Fluticasone Propionate (Flonase) 1 actuation NS HS [facility] Folic Acid (Folic Acid) 1 mg PO DAILY [facility] Last Admin: 12/16/18 10:19 Dose: 1 mg Guaifenesin/Codeine Phosphate (Robitussin W/Codeine) 5 ml PO Q4H PRN PRN Reason: Cough and congestion Lorazepam (Ativan) 0.5 mg IVP Q8 PRN; Protocol PRN Reason: Anxiety Last Admin: 12/16/18 10:17 Dose: 0.5 mg Montelukast Sodium (Singulair) 10 mg PO HS [facility] Morphine Sulfate (Morphine) 2 mg IVP Q6H PRN PRN Reason: Pain, severe (8-10) Multivitamins/Vitamin C (Multi-Delyn Liquid) 15 ml PO 0800 [facility] Nicotine (Nicoderm Cq) 1 patch TD DAILY PRN PRN Reason: URGE TO SMOKE Last Admin: 12/16/18 10:19 Dose: 1 patch Pantoprazole Sodium (Protonix Inj) 40 mg IVP DAILY [facility] Last Admin: 12/16/18 10:20 Dose: 40 mg Thiamine HCl (Vitamin B1 Tab) 100 mg PO BID [facility] Last Admin: 12/16/18 10:20 Dose: 100 mg Zolpidem Tartrate (Ambien) 5 mg PO HS PRN; Protocol PRN Reason: Insomnia Last Admin: 12/15/18 22:16 Dose: 5 mg Physical Exam - Constitutional Appears: No Acute Distress, Chronically Ill - Eye Exam Eye Exam: EOMI, PERRL - ENT Exam ENT Exam: Mucous Membranes Moist Additional comments: swelling on left lateral neck - Respiratory Exam Respiratory Exam: Clear to Auscultation Bilateral. absent: Rales, Rhonchi, Whe ezes - Cardiovascular Exam Cardiovascular Exam: RRR, +S1, +S2 - GI/Abdominal Exam GI & Abdominal Exam: Normal Bowel Sounds, Soft. absent: Distended, Firm, Guarding, Organomegaly, Rigid, Tenderness - Extremities Exam Extremities exam: Positive for: normal inspection. Negative for: pedal edema - Neurological Exam Neurological exam: Alert, Oriented x3 - Psychiatric Exam Psychiatric exam: Normal Affect, Normal Mood - Skin Skin Exam: Dry, Warm Results - Vital Signs Recent Vital Signs: Last Vital Signs Temp 97.8 F 12/16/18 08:04 Pulse 84 12/16/18 08:04 Resp 20 12/16/18 08:04 BP 166/86 H 12/16/18 08:04 Pulse Ox 95 12/16/18 08:04 - Labs Result Diagrams: 12/15/18 16:20 12/15/18 16:20 Labs: Laboratory Results - last 24 hr 12/15/18 12/15/18 12/15/18 16:20 16:20 16:20 WBC 18.0 H RBC 5.17 Hgb 16.2 Hct 48.0 MCV 92.8 MCH 31.3 MCHC 33.8 RDW 13.2 Plt Count 373 MPV 9.1 Neut % (Auto) 87.0 H Lymph % (Auto) 5.6 L [place] % (Auto) 6.6 H Eos % (Auto) 0.3 L Baso % (Auto) 0.5 Lymph # (Auto) 1.0 L [place] # (Auto) 1.2 H Eos # (Auto) 0.1 Baso # (Auto) 0.09 Absolute Neuts (auto) 15.68 H PT 13.2 H INR 1.19 APTT 37.9 Sodium 140 Potassium 4.1 Chloride 102 Carbon Dioxide 28 Anion Gap 14 BUN 8 Creatinine 0.6 L Est GFR ( Amer) > 60 Est GFR (Non-Af Amer) > 60 Random Glucose 110 Hemoglobin A1c Calcium 9.4 Total Bilirubin 0.6 AST 47 ALT 28 Alkaline Phosphatase 125 Total Protein 8.0 Albumin 4.0 Globulin 4.0 Albumin/Globulin Ratio 1.0 L Triglycerides 115 Cholesterol 149 LDL Cholesterol Direct 64 HDL Cholesterol 70 H 12/15/18 16:20 WBC RBC Hgb Hct MCV MCH MCHC RDW Plt Count MPV Neut % (Auto) Lymph % (Auto) [place] % (Auto) Eos % (Auto) Baso % (Auto) Lymph # (Auto) [place] # (Auto) Eos # (Auto) Baso # (Auto) Absolute Neuts (auto) PT INR APTT Sodium Potassium Chloride Carbon Dioxide Anion Gap BUN Creatinine Est GFR ( Amer) Est GFR (Non-Af Amer) Random Glucose Hemoglobin A1c 6.4 Calcium Total Bilirubin AST ALT Alkaline Phosphatase Total Protein Albumin Globulin Albumin/Globulin Ratio Triglycerides Cholesterol LDL Cholesterol Direct HDL Cholesterol Assessment & Plan - Assessment and Plan (Free Text) Assessment: Patient is a 52yo male with PMHX significant for squamous cell carcinoma of the tongue, tonsil and nasopharynx as well as hypertension and tobacco/EtOH abuse who presented to the hospital as the recommendation of his oncologist for deterioration 2/2 his known malignancy -Dysphaia 2/2 squamous cell carcinoma of the tongue/tonsil/nasopharynx -Tobacco/EtOH abuse -HTN Plan: -Plan for EGD with attempted PEG insertion tomorrow morning -NPO past midnight -S/P mapping with radiation oncology -Oncology following -Education provided on smoking/alcohol cessation - Date & Time Date: 12/16/18 Time: 08:50 <Marcelle Stearns V - Last Filed: 12/17/18 00:07> Meds - Medications Medications: Current Medications Acetaminophen (Tylenol 160mg/5ml Oral Soln) 320 mg PO Q4 PRN PRN Reason: Pain, Mild (1-3) Albuterol/Ipratropium (Duoneb 3 Mg/0.5 Mg (3 Ml) Ud) 3 ml IH Q4 PRN PRN Reason: Shortness of Breath Amlodipine Besylate (Norvasc) 5 mg PO DAILY [facility] Last Admin: 12/16/18 10:20 Dose: 5 mg Arformoterol Tartrate (Brovana) 15 mcg IH [id number] [facility] Last Admin: 12/16/18 20:42 Dose: 15 mcg Budesonide (Pulmicort Respules) 0.5 mg IH [id number] [facility] Last Admin: 12/16/18 20:42 Dose: 0.5 mg Chlordiazepoxide (Librium) 10 mg PO Q12 [facility]; Protocol Last Admin: 12/16/18 21:47 Dose: Not Given Fluticasone Propionate (Flonase) 1 actuation NS HS [facility] Last Admin: 12/16/18 21:43 Dose: 1 spr Folic Acid (Folic Acid) 1 mg PO DAILY [facility] Last Admin: 12/16/18 10:19 Dose: 1 mg Guaifenesin/Codeine Phosphate (Robitussin W/Codeine) 5 ml PO Q4H PRN PRN Reason: Cough and congestion Sodium Chloride (Sodium Chloride 0.45%) 1,000 mls @ 80 mls/hr IV .[id number] [facility] Stop: 12/17/18 08:00 Last Admin: 12/16/18 18:45 Dose: Not Given Lorazepam (Ativan) 0.5 mg IVP Q8 PRN; Protocol PRN Reason: Anxiety Last Admin: 12/16/18 10:17 Dose: 0.5 mg Montelukast Sodium (Singulair) 10 mg PO HS [facility] Last Admin: 12/16/18 21:39 Dose: 10 mg Morphine Sulfate (Morphine) 2 mg IVP Q6H PRN PRN Reason: Pain, severe (8-10) Last Admin: 12/16/18 21:49 Dose: 2 mg Multivitamins/Vitamin C (Multi-Delyn Liquid) 15 ml PO 0800 [facility] Nicotine (Nicoderm Cq) 1 patch TD DAILY PRN PRN Reason: URGE TO SMOKE Last Admin: 12/16/18 10:19 Dose: 1 patch Pantoprazole Sodium (Protonix Inj) 40 mg IVP DAILY [facility] Last Admin: 12/16/18 10:20 Dose: 40 mg Thiamine HCl (Vitamin B1 Tab) 100 mg PO BID [facility] Last Admin: 12/16/18 17:40 Dose: 100 mg Zolpidem Tartrate (Ambien) 5 mg PO HS PRN; Protocol PRN Reason: Insomnia Last Admin: 12/15/18 22:16 Dose: 5 mg Results - Vital Signs Recent Vital Signs: Last Vital Signs Temp 97.8 F 12/16/18 17:15 Pulse 92 H 12/16/18 20:45 Resp 20 12/16/18 17:15 BP 161/96 H 12/16/18 17:15 Pulse Ox 100 12/16/18 17:15 - Labs Result Diagrams: 12/15/18 16:20 12/15/18 16:20 Labs: Laboratory Results - last 24 hr 12/15/18 16:20 Hemoglobin A1c 6.4 Attending/Attestation - Attestation I have personally seen and examined this patient.: Yes I have fully participated in the care of the patient.: Yes I have reviewed all pertinent clinical information: Yes Notes (Text): This is an addendum to the GI progress report dictated by fellow. The patient was seen and evaluated with the GI fellow earlier today. Discussed this patient's case with the Dr. Hughes and also with the Dr. Downs earlier. This patient with a dysphagia pharyngeal carcinoma plan for radiation and chemotherapy. Patient would benefit from PEG tube placement. Scheduled for the procedure tomorrow. Discussed with the patient at length regarding the procedure and patient agreed for the procedure 12/17/18 00:06
--- NOTE | 2018-12-16 13:25 | CON ---
DATE: 12/16/2018 PULMONARY CONSULTATION NOTE REFERRING PHYSICIAN: Dr. Downs REASON FOR CONSULTATION: Pulmonary evaluation, cough. HISTORY OF PRESENT ILLNESS: This is a 52-year-old male with past medical history significant for stage IV oropharyngeal cancer, which was diagnosed in April 2018, hypertension, alcohol abuse, tobacco abuse, who presented for admission for developing increased difficulty swallowing. He reports that it is easier to swallow liquids as supposed to solids. The patient is originally from [place], but has been looking at treatment options in [place], as his sister presently lives in this area. He states that in July, he was having dysphagia to solids and had a sharp pain in his left ear which improved with position changes. He also reports having coughing up tissue from his mouth which helped to relieved the pain in his neck. Reports that he has had 50 pound weight loss since July. The patient saw physician in [place], who wanted to excise the tumor, but the patient refused the surgery at this time as it would result in tracheostomy, as a result, he decided to search for other treatment options. PET scan was performed, which showed hypermetabolic masses involving the left nasopharynx, left palatine tonsil and left side of the tongue. The patient at this time for pending PEG tube placement and to begin chemotherapy and radiation. PAST MEDICAL HISTORY: As per history of present illness. FAMILY HISTORY: Father had lung cancer and mother breast cancer. SOCIAL HISTORY: Current smoker, 1 pack per day for 20 to 25 years, positive EtOH abuse, occasional marijuana use. ALLERGIES: NO KNOWN DRUG ALLERGIES. REPORTS HAVING ALLERGIES TO CAT HAIR AND DUST. MEDICATIONS: Reviewed. Tylenol oral solution 320 mg every 4 hours p.r.n., DuoNeb 3 mL inhalation every 4 hours p.r.n., Norvasc 5 mg daily, Librium 10 mg every 12 hours, folic acid 1 mg daily, Robitussin with codeine 5 mL every 4 hours p.r.n., Ativan 0.5 mg IV push every 8 hours p.r.n., morphine sulfate 2 mg IV push every 6 hours p.r.n., nicotine patch transdermal daily, Protonix 40 mg IV push daily, thiamine 100 mg twice a day, Ambien 5 mg at bedtime p.r.n.. REVIEW OF SYSTEMS: No headache, chest pain, abdominal pain, nausea, vomiting, diarrhea, leg pain or leg swelling reported. The patient reports being on having difficulty eating solid food. Reports occasional productive cough. Denies shortness of breath. Reports having rhinorrhea. Denies snoring. Denies daytime hypersomnia. PHYSICAL EXAMINATION: GENERAL: No acute distress. VITAL SIGNS: Blood pressure 166/86, pulse 84, temperature 97.8, oxygen saturation 95% on room air. HEENT: Moist mucous membranes. Mallampati score of 4. Crowded airway. NECK: Supple. No JVD. LUNGS: Few scattered rhonchi bilaterally. CARDIOVASCULAR: S1 and S2. ABDOMEN: Soft and nontender. No distention. No organomegaly. EXTREMITIES: No bilateral lower extremity edema. NEUROLOGIC: Awake, alert and verbal. Following commands. LABORATORY DATA: Reviewed. WBC 18, RBC 5.17, hemoglobin 16.2, hematocrit 48, and platelets 373. PT 13.2, INR 1.19, APTT 37.9. Sodium 140, potassium 4.1, chloride 102, carbon dioxide 28, anion gap 14, BUN 8, creatinine 0.6, GFR greater than 60, random glucose 110, calcium 9.4, total bilirubin 0.6, AST 47, ALT 28, alkaline phosphatase 125, total protein 8, albumin 4, globulin 4 and albumin-globulin ration 1.0, triglycerides 115, cholesterol 149, LDL cholesterol 64, HDL cholesterol 70. Soft tissue neck CT report pending. Chest CT report pending. EKG shows sinus tachycardia. IMPRESSION AND PLAN: Oropharyngeal cancer, hypertension, active smoker, history of EtOH abuse, suspect chronic lung disease in this patient. We will place the patient on multivitamin liquid. Continue smoking cessation. Continue nicotine patch. Continue gastric prophylaxis. We will place the patient on Singulair 10 mg at bedtime, Flonase nasal spray at bedtime. We will place the patient on routine inhaled bronchodilators, Brovana and Pulmicort. Aspiration precautions. We will order procalcitonin levels to be done in this patient. He is at high risk for aspiration to rule out pneumonia. We will followup with chest CT and soft tissue neck CT when report available we will order swallow evaluation to be done. The patient is pending PEG tube placement and scheduled to be in chemotherapy, radiation therapy. Continue Hematology and Oncology followup. We will place the patient on deep venous thrombosis prophylaxis, Lovenox. Recommend close cardiopulmonary monitoring while sedated. Head of bed elevated at 45 degrees, aspiration precaution. This patient was seen and examined with Dr. Hassan. Discussed assessment and plan as described above. This patient was seen and examined with Martin Ulloa, nurse practitioner. Discussed assessment and plan as described above. Thank you for this consult and we will follow with you. Martin Ulloa APN Quincy Hassan MD MTDDouglas
[2018-12-16] MEDS ORDERED: Gadodiamide 287 MG/ML VIAL (15ML) IV ONE (14:52)
--- NOTE | 2018-12-16 15:12 | CT ---
Date of service: 12/15/2018 PROCEDURE: CT NECK WITH CONTRAST HISTORY: Left sided oral pharyngeal carcinoma COMPARISON: None available. TECHNIQUE: CT of the neck with intravenous contrast. Coronal and sagittal reformats generated. Intravenous contrast dose: 150 mL Omnipaque 350 Radiation dose: Total exam DLP = 1001.09 mGy-cm. This CT exam was performed using one or more of the following dose reduction techniques: Automated exposure control, adjustment of the mA and/or kV according to patient size, and/or use of iterative reconstruction technique. FINDINGS: NASOPHARYNX: Mass effect and effacement of left fossa of Rosenmuller. SUPRAHYOID NECK: There is a large approximately 3.9 x 3.1 x 6.5 cm heterogeneously enhancing soft tissue mass in the left tonsil extending to the left parapharyngeal space with mass effect on the lateral pharyngeal wall and effacement of the left hypopharynx and piriform sinus. There is moderate narrowing of the oropharyngeal airway. Laterally the mass extends to the manager managing space and there is loss of fat plane between the mass and the left submandibular gland. The mass also crosses the midline with involvement of the epiglottis and pre epiglottic space. INFRAHYOID NECK: Unremarkable larynx, hypopharynx, and supraglottic space. Vocal cords intact. GLANDS: Parotid and submandibular glands unremarkable. Normal size thyroid gland, without nodule. There is a small calcified nodule in the left thyroid lobe. LYMPH NODES: There are markedly enlarged solid and cystic left level 1B, 2 A 2 B, 3, 4 and 5 lymph nodes, the largest solid enhancing level 5 lymph node measures 4.6 X 4.5 cm and largest level 2 a cystic lymph node measures 3.7 X 2.9 cm. CERVICAL SPINE: No fracture or focal lesion. Multilevel degenerative changes in the spine with degenerative anterior listhesis of C3 on C4. VASCULAR STRUCTURES: There is normal intravascular enhancement. OTHER FINDINGS: None. IMPRESSION: Large approximately 3.9 x 3.1 x 6.5 cm left oropharyngeal squamous cell carcinoma as described above, with multilevel pathologic metastatic lymph nodes, the largest measures 4.6 x 4.5 cm. A preliminary report was provided by [facility].
[2018-12-16] MEDS ORDERED: Lidocaine PF 2% (5 ml) Inj (For Cardiac Arrhy) ONE ×2 (15:22→15:42)
[2018-12-16] MEDS ORDERED: Midazolam 2 MG/2 ML VIAL ONE ×2 (15:56→16:12)
--- NOTE | 2018-12-16 16:07 | CP.PCM.PN ---
Subjective - Date & Time of Evaluation Date of Evaluation: 12/16/18 Time of Evaluation: 16:07 - Subjective Subjective: OFFICIAL CT SHOW THE FOLLOWING REPORT: Date of service: 12/15/2018 PROCEDURE: CT chest without and with intravenous contrast. HISTORY: LEFT SIDED ORAL PHARYNGEAL CA COMPARISON: None available. INDICATION: Oropharyngeal carcinoma TECHNIQUE: Contiguous axial images were obtained through the chest before and after intravenous contrast enhancement. Sagittal and coronal reconstructions were performed. IV contrast: 150 mL Omnipaque 350 Radiation dose: Total exam DLP = 1408.27 mGy-cm. This CT exam was performed using one or more of the following dose reduction techniques: Automated exposure control, adjustment of the mA and/or kV according to patient size, and/or use of iterative reconstruction technique FINDINGS: LUNGS: The lungs are hyperinflated and there is diffuse centrilobular emphysema in the lungs. There is bibasilar atelectasis. There are scattered tiny peripheral nodules in both lungs. There are no endobronchial lesions. MEDIASTINUM: There aneurysm of the ascending aorta measuring 4.6 x 4.2 cm. Normal sized heart. Main pulmonary artery unremarkable. No vascular congestion. No lymphadenopathy. There are aortic atherosclerotic calcifications present. PLEURA: No pleural fluid. No pneumothorax. BONES: No fracture. No destructive lesion. Multilevel degenerative changes in the spine UPPER ABDOMEN: There is a 1.3 cm adenoma in the left adrenal gland. There is an incompletely imaged simple cyst in the left kidney. OTHER FINDINGS: None. IMPRESSION: 1. Diffuse centrilobular emphysema in the lungs. Scattered tiny peripheral nodules in the lungs are likely post inflammatory in etiology. 2. Aneurysm of the ascending aorta measuring 4.6 x 4.2 cm. A preliminary report was provided by [facility]. The final report is tagged to the PA review folder. I ATTEMPTED TO CALL THE PATIENT, NO ONE ANSWER, THIS REPORT GIVEN TO THE ER CHIEF PILOT HARLAN AND SHE WILL SEND OUT THE CERTIFIED MAIL FOR HIM. Objective - Vital Signs/Intake and Output Vital Signs (last 24 hours): Temp Pulse Resp BP Pulse Ox 97.8 F 84 20 166/86 H 95 12/16/18 08:04 12/16/18 08:04 12/16/18 08:04 12/16/18 08:04 12/16/18 08:04 Intake and Output: 05/02/19 05/02/19 06:59 18:59 Intake Total 1860 Balance 1860 - Medications Medications: Current Medications Acetaminophen (Tylenol 160mg/5ml Oral Soln) 320 mg PO Q4 PRN PRN Reason: Pain, Mild (1-3) Albuterol/Ipratropium (Duoneb 3 Mg/0.5 Mg (3 Ml) Ud) 3 ml IH Q4 PRN PRN Reason: Shortness of Breath Amlodipine Besylate (Norvasc) 5 mg PO DAILY [facility] Last Admin: 12/16/18 10:20 Dose: 5 mg Arformoterol Tartrate (Brovana) 15 mcg IH [id number] [facility] Budesonide (Pulmicort Respules) 0.5 mg IH [id number] [facility] Chlordiazepoxide (Librium) 10 mg PO Q12 [facility]; Protocol Last Admin: 12/16/18 11:00 Dose: Not Given Fluticasone Propionate (Flonase) 1 actuation NS HS [facility] Folic Acid (Folic Acid) 1 mg PO DAILY [facility] Last Admin: 12/16/18 10:19 Dose: 1 mg Guaifenesin/Codeine Phosphate (Robitussin W/Codeine) 5 ml PO Q4H PRN PRN Reason: Cough and congestion Lorazepam (Ativan) 0.5 mg IVP Q8 PRN; Protocol PRN Reason: Anxiety Last Admin: 12/16/18 10:17 Dose: 0.5 mg Montelukast Sodium (Singulair) 10 mg PO HS [facility] Morphine Sulfate (Morphine) 2 mg IVP Q6H PRN PRN Reason: Pain, severe (8-10) Multivitamins/Vitamin C (Multi-Delyn Liquid) 15 ml PO 0800 [facility] Nicotine (Nicoderm Cq) 1 patch TD DAILY PRN PRN Reason: URGE TO SMOKE Last Admin: 12/16/18 10:19 Dose: 1 patch Pantoprazole Sodium (Protonix Inj) 40 mg IVP DAILY [facility] Last Admin: 12/16/18 10:20 Dose: 40 mg Thiamine HCl (Vitamin B1 Tab) 100 mg PO BID [facility] Last Admin: 12/16/18 10:20 Dose: 100 mg Zolpidem Tartrate (Ambien) 5 mg PO HS PRN; Protocol PRN Reason: Insomnia Last Admin: 12/15/18 22:16 Dose: 5 mg - Labs Labs: 12/15/18 16:20 12/15/18 16:20 PT 13.2 SECONDS (9.4-12.5) H 12/15/18 16:20 INR 1.19 12/15/18 16:20 APTT 37.9 Seconds (26.9-38.3) 12/15/18 16:20
--- NOTE | 2018-12-16 16:07 | CP.PCM.CON ---
History of Present Illness - History of Present Illness History of Present Illness: This is a 52 yo male with history of progressive mass left tonsil. Patient developed swelling of palate / tongue and left neck. Patient was first seen by ENT in [place] - had FNA done on October 04, 2018 - showed atypical cells. He was referred to oncology at that time.Patient decided to come to [place] where his sister lives for treatment. Patient was seen by Dr Reid - noted to have progression of disease- refused repeat biopsy of mass. PET scan done showed hypermetabolic activity left nasopharynx , left palatine tonsil , left side of tongue as well as left neck. Patient has been trying to get insurance since his arrival to [place]. He was admitted to [facility] [place] due to progression of disease. Patient c/o oral cavity pain , odynophagia , neck pain , tinnitus . Past Patient History - Past Social History Smoking Status: Former Smoker Alcohol: None Home Situation {Lives}: With Family - CARDIAC Hx Hypertension: Yes - PULMONARY Hx Respiratory Disorders: No - NEUROLOGICAL Hx Neurological Disorder: Yes - HEENT Hx HEENT Problems: Yes Hx Deafness: Yes (R EAR) - RENAL Hx Chronic Kidney Disease: No - ENDOCRINE/METABOLIC Hx Endocrine Disorders: No - HEMATOLOGICAL/ONCOLOGICAL Hx Cancer: Yes (oropharyngeal) - INTEGUMENTARY Hx Dermatological Problems: Yes Other/Comment: 5- 19 LARGE MASS L SIDE OF NECK W/SURROUNDING ERYTHEMA. - MUSCULOSKELETAL/RHEUMATOLOGICAL Hx Musculoskeletal Disorders: No Hx Falls: No - GASTROINTESTINAL Hx Gastrointestinal Disorders: Yes (L INGUINAL HERNIA WITH HERNIORHAPPHY) HX Swallowing Problems: Yes - GENITOURINARY/GYNECOLOGICAL Hx Genitourinary Disorders: No - PSYCHIATRIC Hx Psychophysiologic Disorder: No Hx Substance Use: Yes (OCCASIONAL MARIJUANA) - SURGICAL HISTORY Hx Surgeries: Yes - ANESTHESIA Hx Anesthesia: Yes Meds Allergies/Adverse Reactions: Allergies Allergy/AdvReac Type Severity Reaction Status Date / Time No Known Allergies Allergy Verified 12/15/18 18:08 - Medications Medications: Current Medications Acetaminophen (Tylenol 160mg/5ml Oral Soln) 320 mg PO Q4 PRN PRN Reason: Pain, Mild (1-3) Albuterol/Ipratropium (Duoneb 3 Mg/0.5 Mg (3 Ml) Ud) 3 ml IH Q4 PRN PRN Reason: Shortness of Breath Amlodipine Besylate (Norvasc) 5 mg PO DAILY AYESHA Last Admin: 12/16/18 10:20 Dose: 5 mg Arformoterol Tartrate (Brovana) 15 mcg IH [id number] [facility] Budesonide (Pulmicort Respules) 0.5 mg IH [id number] [facility] Chlordiazepoxide (Librium) 10 mg PO Q12 [facility]; Protocol Last Admin: 12/16/18 11:00 Dose: Not Given Fluticasone Propionate (Flonase) 1 actuation NS HS [facility] Folic Acid (Folic Acid) 1 mg PO DAILY [facility] Last Admin: 12/16/18 10:19 Dose: 1 mg Guaifenesin/Codeine Phosphate (Robitussin W/Codeine) 5 ml PO Q4H PRN PRN Reason: Cough and congestion Lorazepam (Ativan) 0.5 mg IVP Q8 PRN; Protocol PRN Reason: Anxiety Last Admin: 12/16/18 10:17 Dose: 0.5 mg Montelukast Sodium (Singulair) 10 mg PO HS [facility] Morphine Sulfate (Morphine) 2 mg IVP Q6H PRN PRN Reason: Pain, severe (8-10) Multivitamins/Vitamin C (Multi-Delyn Liquid) 15 ml PO 0800 [facility] Nicotine (Nicoderm Cq) 1 patch TD DAILY PRN PRN Reason: URGE TO SMOKE Last Admin: 12/16/18 10:19 Dose: 1 patch Pantoprazole Sodium (Protonix Inj) 40 mg IVP DAILY [facility] Last Admin: 12/16/18 10:20 Dose: 40 mg Thiamine HCl (Vitamin B1 Tab) 100 mg PO BID [facility] Last Admin: 12/16/18 10:20 Dose: 100 mg Zolpidem Tartrate (Ambien) 5 mg PO HS PRN; Protocol PRN Reason: Insomnia Last Admin: 12/15/18 22:16 Dose: 5 mg Physical Exam - Head Exam Head Exam: ATRAUMATIC, NORMAL INSPECTION - Eye Exam Eye Exam: EOMI, Normal appearance Pupil Exam: NORMAL ACCOMODATION, PERRL - ENT Exam Additional comments: EARS: AD - EAC / TM wnl , - EAC = wnl , TM dull - ? fluid Nose - atrophic mucosa Oral Cavity - mild trismus noted , Large exophytic mass involving left palate / tongue , extending to buccal mucosa - Neck Exam Neck exam: Positive for: Lymphadenopathy (massive fixed adenopathy levels 2 -3 on left ) - Respiratory Exam Respiratory Exam: NORMAL BREATHING PATTERN - Extremities Exam Extremities exam: Positive for: normal inspection - Neurological Exam Neurological exam: Alert, CN II-XII Intact, Oriented x3 - Psychiatric Exam Psychiatric exam: Normal Affect, Normal Mood - Skin Skin Exam: Dry, Intact, Normal Color, Warm Results - Vital Signs Recent Vital Signs: Last Vital Signs Temp 97.8 F 12/16/18 08:04 Pulse 84 12/16/18 08:04 Resp 20 12/16/18 08:04 BP 166/86 H 12/16/18 08:04 Pulse Ox 95 12/16/18 08:04 - Labs Result Diagrams: 12/15/18 16:20 12/15/18 16:20 Labs: Laboratory Results - last 24 hr 12/15/18 12/15/18 12/15/18 16:20 16:20 16:20 WBC 18.0 H RBC 5.17 Hgb 16.2 Hct 48.0 MCV 92.8 MCH 31.3 MCHC 33.8 RDW 13.2 Plt Count 373 MPV 9.1 Neut % (Auto) 87.0 H Lymph % (Auto) 5.6 L Becker % (Auto) 6.6 H Eos % (Auto) 0.3 L Baso % (Auto) 0.5 Lymph # (Auto) 1.0 L Becker # (Auto) 1.2 H Eos # (Auto) 0.1 Baso # (Auto) 0.09 Absolute Neuts (auto) 15.68 H PT 13.2 H INR 1.19 APTT 37.9 Sodium 140 Potassium 4.1 Chloride 102 Carbon Dioxide 28 Anion Gap 14 BUN 8 Creatinine 0.6 L Est GFR ( Amer) > 60 Est GFR (Non-Af Amer) > 60 Random Glucose 110 Hemoglobin A1c Calcium 9.4 Total Bilirubin 0.6 AST 47 ALT 28 Alkaline Phosphatase 125 Total Protein 8.0 Albumin 4.0 Globulin 4.0 Albumin/Globulin Ratio 1.0 L Triglycerides 115 Cholesterol 149 LDL Cholesterol Direct 64 HDL Cholesterol 70 H 12/15/18 16:20 WBC RBC Hgb Hct MCV MCH MCHC RDW Plt Count MPV Neut % (Auto) Lymph % (Auto) Becker % (Auto) Eos % (Auto) Baso % (Auto) Lymph # (Auto) Becker # (Auto) Eos # (Auto) Baso # (Auto) Absolute Neuts (auto) PT INR APTT Sodium Potassium Chloride Carbon Dioxide Anion Gap BUN Creatinine Est GFR ( Amer) Est GFR (Non-Af Amer) Random Glucose Hemoglobin A1c 6.4 Calcium Total Bilirubin AST ALT Alkaline Phosphatase Total Protein Albumin Globulin Albumin/Globulin Ratio Triglycerides Cholesterol LDL Cholesterol Direct HDL Cholesterol Assessment & Plan (1) Dysphagia Status: Acute (2) Oral-mouth cancer Status: Acute Comment: 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
[2018-12-16] MEDS ORDERED: DiphenhydrAMINE 50 mg/ml Inj ONE (16:17)
--- NOTE | 2018-12-16 17:29 | MRI ---
Date of service: 12/16/2018 PROCEDURE: MRI NECK WITH AND WITHOUT CONTRAST HISTORY: oropharynx ca w/ ext to nasopharynx (special attn) COMPARISON: CT scan with intravenous contrast performed earlier the same day. TECHNIQUE: Multiplanar multisequence MR images of the neck were obtained with and without gadolinium enhancement. 15 mL Omniscan was injected intravenously FINDINGS: There is a bulky heterogeneously enhancing oropharyngeal mass with necrotic areas, its epicenter presumably in the left tonsil/oropharynx. Superiorly the mass involves the left nasopharynx with obliteration of the fossa of Rosenmuller with mild narrowing of the nasopharyngeal airway. Inferiorly the mass involves the left lateral pharyngeal wall extending to the left piriform sinus/hypopharynx with complete obliteration of the sinus, also extending into the supraglottic larynx with irregular enhancement of the false cords and moderate narrowing of the supraglottic airway. There is also involvement of the epiglottis, pre epiglottic fat, left paraglottic fat and left aryepiglottic fold. There is also edema/involvement of the true cords. Anteriorly, the bulky mass involves the left retromolar trigone, entire left tongue with involvement of the left sublingual gland and floor of the mouth. The tumor also crosses the midline to involve the right paramedian tongue. There is also involvement of the retromolar trigone. The tumor also involves the uvula. There is also involvement of the epiglottis, pre epiglottic fat, left paraglottic fat. Laterally the mass involves the marketing specialist and parapharyngeal spaces. Superolaterally the mass involves the submandibular gland and submandibular space. GLANDS: Parotid and right submandibular glands unremarkable. Normal size thyroid gland, without nodule. LYMPH NODES: There are bulky enlarged pathologic and necrotic level 1 to level 5 lymph nodes on the left, the largest level 5 lymph node measures 4.5 x 4.0 cm. There is an enlarged right level 2A lymph node measuring 1.3 cm in short axis. VASCULAR STRUCTURES: Unremarkable. OTHER FINDINGS: Large left mastoid effusion. IMPRESSION: 1. Bulky heterogeneously enhancing left oropharyngeal carcinoma likely origin eating in the left tonsil/oropharynx superiorly involving the left nasopharynx, superior laterally retromolar trigone, anteriorly the entire left tongue also extending across the midline to involve the right paramedian tongue, involving the left floor of the mouth, left sublingual gland, soft palate and epiglottis. Inferiorly the mass extends into the oropharynx, hypopharynx also involving the false cords with questionable involvement of the true cords. Also involved are left paraglottic space, left aryepiglottic fold and pre glottic space. Laterally the mass involves the parapharyngeal and marketing specialist spaces, also involving the left superior submandibular gland. 2. Bulky pathologic solid and necrotic left level 1 2 level 5 lymph nodes, the largest superior level 5 lymph node measures 4.5 x 4.0 cm. 3. Pathologic contralateral right level 2 A lymph node measuring 1.3 cm in short axis.
[2018-12-16] MEDS: Sodium Chloride 0.45% 1,000 ML IV SCH (18:45)
[2018-12-16] MEDS: Budesonide 0.5 mg/2 ml Inhal Susp UD IH SCH (20:42)
[2018-12-16] MEDS: Arformoterol 15 mcg/2 ml Inh Sol IH SCH (20:42)
[2018-12-16] MEDS: Fluticasone Nasal 50 mcg/Spray NS SCH (21:43)
[2018-12-16] MEDS: Morphine 2 mg/ml ISec IVP PRN (21:49)
--- NOTE | 2018-12-16 21:52 | VASCULAR ---
PROCEDURE: Ultrasound and fluoroscopic right internal jugular venous access port. CLINICAL HISTORY: Alanna pharyngeal carcinoma.Venous port for chemotherapy. PHYSICIAN(S): Mg Sifuentes M.D. TECHNIQUE: The relative risks and indications of the procedure were explained to the patient and consent obtained. The patient was placed supine on the arteriogram table and the right neck and chest prepped and draped in the usual sterile fashion. Conscious sedation monitoring was provided throughout the procedure by a nurse. Antibiotics were given prior to the procedure. Under direct ultrasound guidance, the right internal jugular vein was punctured with a micro-puncture set. A 0.035 angled Glidewire was advanced into the IVC. A 4 cm incision was made below the right clavicle and the pocket blunted dissected. A 8 Mongolian single-lumen catheter, 27 cm long, was advanced to the SVC/RA junction. The catheter was trimmed and attached to the port. The port aspirates and injects easily. The port was placed in the pocket and closed in 2 layers. An access needle was placed. The patient tolerated the procedure well. IMPRESSION: Ultrasound and fluoroscopically placed right internal jugular venous access port.
[2018-12-16] MEDS ORDERED: Dexamethasone 20 mg / 5 ml Inj IVP ONE (22:00)
--- NOTE | 2018-12-17 00:50 | PN ---
DATE: 12/16/2018 This is [facility]'s [facility] visit on the medical floor. For Dr. Hughes. SUBJECTIVE: The patient is a 52-year-old male with known stage III head and neck cancer diagnosed in [place], now being followed here as the patient was advised that he would need a permanent tracheostomy for which he was refusing treatment at the facility in [place]. Now, he has agreed for treatment protocols to be implemented as described. With this, a Port-A-Cath was recommended to be placed as soon as possible for chemotherapy to be given effectively along with plans for a PEG tube to be placed tomorrow with radiation assessment also to be given in tandem with chemotherapy. Unfortunately, the patient is a heavy smoker with significant alcohol use with the patient anxious for which alcohol withdrawal precautions, nicotine patch and Librium is being given with the patient being followed expectantly. He has family members at the bedside which reassure him of the need to continue present medical regimen. At present, he is reporting significant discomfort to his oropharynx on the left side of his face with the swallowing evaluation reporting that he can tolerate a modified diet which was recommended prior to his being n.p.o. for eventual PEG placement and further treatment. With this, the patient is otherwise in no acute distress with his voice change secondary to his head and neck cancer. Consult with Dr. Rodriguez was appreciated, ears, nose and throat area development consultant with aggressive treatment plan with the patient having signed consent for treatment as per Dr. Hughes's protocols. He is status post mapping for radiation with Dr. Mg Sifuentes having placed his port after urgent request so that we may expedite his treatment as possible. OBJECTIVE: PHYSICAL EXAMINATION: VITAL SIGNS: Temperature 97.8, pulse 87, respirations 20, blood pressure 161/96, pulse ox 100%. HEENT: Large exophytic mass involving the left palate, tongue extending to the buccal mucosa with significant neck lymphadenopathy with compromised speech and trismus noted. HEART: Tachy rate, regular rhythm. LUNGS: Clear. ABDOMEN: Soft, nontender. EXTREMITIES: No edema. SKIN: Warm and dry. NEUROLOGIC: Awake and alert. LABORATORY DATA: The patient's labs were done yesterday with the labs not being drawn this morning. They will be repeated tomorrow morning including a CEA value. The patient did have an MRI of his orbit, face and neck done earlier today. It was read as bulky heterogeneously enhancing left oropharyngeal carcinoma, likely originating into the left tonsil, oropharynx superiorly involving the left nasopharynx, superolateral retromolar trigone, anteriorly entire left tongue, also extending across the midline to involve the right paramedian tongue involving the left floor of the mouth, left sublingual gland, soft palate and epiglottis. Inferiorly, the mass extends to the oropharynx, hypopharynx, also involving the false cords with questionable involvement of the true cords, also involvement of the left paraglottic space, left epiglottic fold and preglottic space. Laterally, the mass involves the parapharyngeal and supplemental nurse spaces, also involving left superior mandibular gland. Bulky pathologic solid and necrotic 1.2 level 5 lymph node, largest measuring level 5 lymph node, 4.5 x 4 cm. Pathologic contralateral right level 2A lymph node measuring 1.3 cm in the short axis. The patient's PET/CT scan was to have been uploaded into the computer to the [facility] system. We await this to be done. ASSESSMENT: For this patient is that of stage IV head and neck cancer extending to the soft palate and left neck, tongue, nasopharynx, left palatine tonsils. Hypertension, failure to thrive, alcohol abuse, nicotine abuse, insomnia, anxiety. PLAN: For this patient after consultation with Dr. Hughes and consultants as above is to begin treatment expectantly as soon as possible with port placement today after emergency consult with Dr. Mg Sifuentes so that chemotherapy may begin in coordination with radiation with PEG placement tomorrow as per Dr. Stearns with further recommendations as per consultants as above. We will monitor clinically with labs. This is a complex patient with a comprehensive medically necessary and appropriate visit carried out in excess of 55 minutes with the patient's questions and family members' questions answered to their satisfaction. Leonardo Ramírez MD
[2018-12-17] MEDS: Sodium Chloride 0.45% 1,000 ML IV SCH (06:13)
[2018-12-17 06:40] LABS: BASO # 0.01 K/mm3 (0.0-2.0); BASO % 0.1 % (0.0-3.0); HEMOGLOBIN 15.6 g/dL (14.0-18.0); LYMPH # 0.4 (1.2-3.4); LYMPH % 4.2 % (22.0-35.0); MEAN CELL VOLUME 92.9 fl (80.0-105.0); MEAN CORPUSCULAR HEMOGLOBIN 30.6 pg (25.0-35.0); MEAN PLATELET VOLUME 9.4 fl (7.0-11.0); MONO # 0.2 (0.1-0.6); MONO % 1.9 % (1.0-6.0); PLATELET COUNT 369 10^3/uL (120.0-450.0); RBC 5.09 10^6/uL (3.5-6.1); RED CELL DISTRIBUTION WIDTH 13.1 % (11.5-14.5); WHITE BLOOD COUNT 10.3 10^3/uL (4.5-11.0)
[2018-12-17 07:19] LABS: ALBUMIN 3.6 g/dL (3.0-4.8); ALT/SGPT 15 U/L (7-56); AST/SGOT 27 U/L (17-59); BLOOD UREA NITROGEN 8 mg/dL (7-21); CALCIUM 9.4 mg/dL (8.4-10.5); GFR NON-AFRICAN AMERICAN > 60
[2018-12-17] MEDS: Arformoterol 15 mcg/2 ml Inh Sol IH SCH ×2 (07:42→20:06)
[2018-12-17] MEDS: Budesonide 0.5 mg/2 ml Inhal Susp UD IH SCH ×2 (07:42→20:07)
[2018-12-17] MEDS ORDERED: Multivitamin With Minerals Tab PO SCH (08:00)
[2018-12-17] MEDS ORDERED: Benzocaine/Butamben/Tetracai 14-2-2% TOP Spray TOP ONE (08:14)
[2018-12-17] MEDS ORDERED: Flumazenil 0.1 mg/ml Inj (5ml) IVP ONE (08:45)
[2018-12-17] MEDS ORDERED: Sodium Chloride 0.9% 1,000 ML IV SCH (08:45)
[2018-12-17] MEDS ORDERED: Midazolam 2 MG/2 ML VIAL ONE (08:46)
[2018-12-17] MEDS ORDERED: Lidocaine 2% Jelly (30 ml) ONE (09:08)
[2018-12-17 09:09] LABS: ATYPICAL LYMPHOCYTE 1 % (0.0-0.0); BAND 1 % (0-2); LYMPHOCYTE 1 % (22.0-35.0); NEUTROPHIL 97 % (50.0-70.0)
--- NOTE | 2018-12-17 09:21 | CP.PCM.PN ---
<Lois Sylvester - Last Filed: 12/17/18 11:59> Subjective - Date & Time of Evaluation Date of Evaluation: 12/17/18 Time of Evaluation: 09:14 - Subjective Subjective: Lois Sylvester, PGY-1, Internal Medicine Progress Note for Dr. Downs Patient seen and evaluated at bedside. Patient had no acute overnight events. Patient continues to complain of left ear pain but denies any other symptoms at this time including dysphagia to liquids, fever, chills, chest pain, heart palpitations, shortness of breath, nausea, vomiting, constipation, diarrhea, dysuria, hematuria. Patient required morphine for pain relief last night. 12-po int ROS was unremarkable except for what was mentioned above. Objective - Vital Signs/Intake and Output Vital Signs (last 24 hours): Temp Pulse Resp BP Pulse Ox 98.6 F 90 11 L 130/74 95 12/17/18 07:49 12/17/18 07:49 12/17/18 07:49 12/17/18 07:49 12/17/18 07:49 Intake and Output: 12/17/18 12/17/18 06:59 18:59 Intake Total 960 Balance 960 - Medications Medications: Current Medications Acetaminophen (Tylenol 160mg/5ml Oral Soln) 320 mg PO Q4 PRN PRN Reason: Pain, Mild (1-3) Albuterol/Ipratropium (Duoneb 3 Mg/0.5 Mg (3 Ml) Ud) 3 ml IH Q4 PRN PRN Reason: Shortness of Breath Amlodipine Besylate (Norvasc) 10 mg PO DAILY [facility] Arformoterol Tartrate (Brovana) 15 mcg IH [id number] [facility] Last Admin: 12/17/18 07:42 Dose: Not Given Budesonide (Pulmicort Respules) 0.5 mg IH [id number] [facility] Last Admin: 12/17/18 07:42 Dose: Not Given Chlordiazepoxide (Librium) 10 mg PO Q12 [facility]; Protocol Last Admin: 12/16/18 21:47 Dose: Not Given Fluticasone Propionate (Flonase) 1 actuation NS HS [facility] Last Admin: 12/16/18 21:43 Dose: 1 spr Folic Acid (Folic Acid) 1 mg PO DAILY [facility] Last Admin: 12/16/18 10:19 Dose: 1 mg Guaifenesin/Codeine Phosphate (Robitussin W/Codeine) 5 ml PO Q4H PRN PRN Reason: Cough and congestion Cisplatin 40 mg/ Mannitol 12.5 (gm/ Sodium Chloride) 540 mls @ 135 mls/hr IV ONCE ONE Stop: 12/17/18 19:59 Paclitaxel 90 mg/ Sodium (Chloride) 265 mls @ 176.667 mls/hr IV ONCE ONE Stop: 12/17/18 17:29 Sodium Chloride (Sodium Chloride 0.9%) 1,000 mls @ 75 mls/hr IV .[id number] [facility] Stop: 12/17/18 10:46 Dexamethasone 20 mg/Diphenhydramine HCl 25 mg/Famotidine 20 mg/ Sodium Chloride 57.5 mls @ 172.5 mls/hr IVPB ONCE ONE Stop: 12/17/18 16:19 Fosaprepitant 150 mg/ Sodium (Chloride) 150 mls @ 300 mls/hr IVPB ONCE ONE Stop: 12/17/18 16:29 Lorazepam (Ativan) 0.5 mg IVP Q8 PRN; Protocol PRN Reason: Anxiety Last Admin: 12/16/18 10:17 Dose: 0.5 mg Montelukast Sodium (Singulair) 10 mg PO HS [facility] Last Admin: 12/16/18 21:39 Dose: 10 mg Morphine Sulfate (Morphine) 2 mg IVP Q6H PRN PRN Reason: Pain, severe (8-10) Last Admin: 12/16/18 21:49 Dose: 2 mg Multivitamins/Vitamin C (Multi-Delyn Liquid) 15 ml PO 0800 [facility] Nicotine (Nicoderm Cq) 1 patch TD DAILY PRN PRN Reason: URGE TO SMOKE Last Admin: 12/16/18 10:19 Dose: 1 patch Palonosetron (Aloxi) 0.25 mg IVP ONCE ONE Stop: 12/17/18 16:01 Pantoprazole Sodium (Protonix Inj) 40 mg IVP DAILY [facility] Last Admin: 12/16/18 10:20 Dose: 40 mg Thiamine HCl (Vitamin B1 Tab) 100 mg PO BID [facility] Last Admin: 12/16/18 17:40 Dose: 100 mg Zolpidem Tartrate (Ambien) 5 mg PO HS PRN; Protocol PRN Reason: Insomnia Last Admin: 12/15/18 22:16 Dose: 5 mg - Labs Labs: 12/17/18 06:00 12/17/18 06:00 PT 13.2 SECONDS (9.4-12.5) H 12/15/18 16:20 INR 1.19 12/15/18 16:20 APTT 37.9 Seconds (26.9-38.3) 12/15/18 16:20 - Constitutional Appears: Well, Non-toxic, No Acute Distress - Head Exam Head Exam: ATRAUMATIC, NORMAL INSPECTION, NORMOCEPHALIC - Eye Exam Eye Exam: EOMI, PERRL Pupil Exam: NORMAL ACCOMODATION - ENT Exam Additional comments: white plaques seen on upper palate in back on the mouth - Neck Exam Additional comments: large neck mass on left side of the head - Respiratory Exam Respiratory Exam: Clear to Auscultation Bilateral, NORMAL BREATHING PATTERN. absent: Rales, Rhonchi, Wheezes - Cardiovascular Exam Cardiovascular Exam: REGULAR RHYTHM, RRR, +S1, +S2. absent: Clicks, Gallop, Rubs - GI/Abdominal Exam GI & Abdominal Exam: Normal Bowel Sounds, Soft. absent: Distended, Firm, Guarding, Tenderness - Extremities Exam Extremities exam: Positive for: full ROM, normal inspection. Negative for: tenderness - Neurological Exam Neurological exam: Alert, CN II-XII Intact, Normal Gait, Oriented x3 - Psychiatric Exam Psychiatric exam: Normal Affect, Normal Mood - Skin Skin Exam: Dry, Intact, Normal Color Assessment and Plan - Assessment and Plan (Free Text) Assessment: 52 year old male with past medical history of Head and Neck cancer, hypertension, tobacco abuse, and alcohol abuse presented status post Dr. Hughes calling his sister to bring him to the hospital for further workup and treatment of Head and Neck Cancer. Plan: Squamous cell carcinoma of the left tonsil -Prior PET scan from 11/10: hypermetabolic mass/masses involving the left nasopharynx, left palatine tonsil and left side of the tongue -CT Neck with and without IV contrast 12/15: left oral pharyngeal/left supraglott ic malignancy. Additional large neoplasm in the soft tissues of the left neck with possible cystic necrotic lymphadenopathy, atheromatous plaquing in the carotid bulbs and origins of the ICAs bilaterally. Evidence of advanced degenerative disc disease at C5-6, C6-7, and C7-T1 -Chest CT 12/15: unremarkable -Orbit/face/neck MRI: bulky heterogenous enhancing left oropharyngeal carcinoma from left tosnil sueprriourly involving the left nasopharnyx, superior involving the left nasopharynx, superior laterally retromolar trigone, anteriorly the entire left tongue also extending across the midline to involve the right paramedian tongue, involving the left floor of the mouth, left sublingual gland, soft palate and epiglottis. Inferiorly, the mass extends into the oropharynx, hypopharynx also involving the false cords with questionable involvement of the true cords. Also involved are left paraglottic space, left aryepiglottic fold and preglottic space. Laterally the mass involves the parapharyngeal and director of sustainable design spaces, involving the left superior submandibular gland, bulky pathologic solid and necrotic left level 1 2 level 5 lymph nodes, the largest superior level 5 lymph node. Pathological contralateral right level 2A lymph node -Patient currently on NPO diet -Speech and swallow evaluation recommends pureed thin liquids -Continue robitussin with codeine Q4PRN for pain and congestion -Continue morphine 2 mg Q6PRN for breakthrough pain -Status post PEG tube placement with Dr. Stearns. -Chemoradiation will be coordinated with Dr. Hughes and Dr. Jesus. Status post port placement yesterday. Started paclitaxel and cisplatin -Given fosaprepitant, palonosetron, and dexamethasone for nausea -GI, Dr. Stearns, consulted for recommendations -Heme/Onc, Dr. Hughes, consulted for recommendations -Radiation Oncology, Dr. Jesus, consulted for recommendations. -ENT, Dr. Ervin, consulted for further recommendations. -IR, Dr. Sifuentes, consulted for further recommendations. -Pulmonology, Dr. Hassan, consulted for further recommendations. Hypertension -Continue amlodipine 10 mg Tobacco abuse -Counseled patient regarding dangers of tobacco use. Smoking cessation advised -Continue nicotine patch Rule out alcohol withdrawal -Patient's CIWA has been 0 -Continue librium 10 mg Q12 and ativan 0.5 mg Q8PRN for withdrawal symptoms -Continue with thiamine, folate, and MVI Insomnia -Ambien 5 mg HS PRN for insomnia Shortness of breath 2/2 to likely COPD -Continue duonebs Q4PRN -Start pulmicort, brovana, singulair DVT prophylaxis: not indicated GI prophylaxis: protonix 40 mg daily Patient seen, case discussed with, and plan approved by Dr. Downs. <Sofia Downs - Last Filed: 12/17/18 15:30> Objective - Vital Signs/Intake and Output Vital Signs (last 24 hours): Temp Pulse Resp BP Pulse Ox 98 F 98 H 11 L 138/97 H 100 12/17/18 09:30 12/17/18 09:30 12/17/18 07:49 12/17/18 11:25 12/17/18 09:30 Intake and Output: 12/17/18 12/17/18 06:59 18:59 Intake Total 960 Balance 960 - Medications Medications: Current Medications Acetaminophen (Tylenol 160mg/5ml Oral Soln) 320 mg PO Q4 PRN PRN Reason: Pain, Mild (1-3) Albuterol/Ipratropium (Duoneb 3 Mg/0.5 Mg (3 Ml) Ud) 3 ml IH Q4 PRN PRN Reason: Shortness of Breath Amlodipine Besylate (Norvasc) 10 mg PO DAILY [facility] Last Admin: 12/17/18 11:25 Dose: 10 mg Arformoterol Tartrate (Brovana) 15 mcg IH [id number] [facility] Last Admin: 12/17/18 07:42 Dose: Not Given Budesonide (Pulmicort Respules) 0.5 mg IH [id number] [facility] Last Admin: 12/17/18 07:42 Dose: Not Given Chlordiazepoxide (Librium) 10 mg PO Q12 [facility]; Protocol Last Admin: 12/16/18 21:47 Dose: Not Given Enoxaparin Sodium (Lovenox) 40 mg SC DAILY [facility]; Protocol Fluticasone Propionate (Flonase) 1 actuation NS HS [facility] Last Admin: 12/16/18 21:43 Dose: 1 spr Folic Acid (Folic Acid) 1 mg PO DAILY [facility] Last Admin: 12/17/18 11:26 Dose: 1 mg Guaifenesin/Codeine Phosphate (Robitussin W/Codeine) 5 ml PO Q4H PRN PRN Reason: Cough and congestion Cisplatin 40 mg/ Mannitol 12.5 (gm/ Sodium Chloride) 540 mls @ 135 mls/hr IV ONCE ONE Stop: 12/17/18 19:59 Paclitaxel 90 mg/ Sodium (Chloride) 265 mls @ 176.667 mls/hr IV ONCE ONE Stop: 12/17/18 17:29 Dexamethasone 20 mg/Diphenhydramine HCl 25 mg/Famotidine 20 mg/ Sodium Chloride 57.5 mls @ 172.5 mls/hr IVPB ONCE ONE Stop: 12/17/18 16:19 Potassium Chloride 10 meq/Magnesium Sulfate 8 meq/Sodium Chloride 1,006.9704 mls @ 167.828 mls/hr IV .Q6H [facility] Lorazepam (Ativan) 0.5 mg IVP Q8 PRN; Protocol PRN Reason: Anxiety Last Admin: 12/16/18 10:17 Dose: 0.5 mg Montelukast Sodium (Singulair) 10 mg PO HS [facility] Last Admin: 12/16/18 21:39 Dose: 10 mg Morphine Sulfate (Morphine) 2 mg IVP Q6H PRN PRN Reason: Pain, severe (8-10) Last Admin: 12/16/18 21:49 Dose: 2 mg Multivitamins/Vitamin C (Multi-Delyn Liquid) 15 ml PO 0800 [facility] Last Admin: 12/17/18 11:27 Dose: 15 ml Nicotine (Nicoderm Cq) 1 patch TD DAILY PRN PRN Reason: URGE TO SMOKE Last Admin: 12/17/18 11:24 Dose: 1 patch Palonosetron (Aloxi) 0.25 mg IVP ONCE ONE Stop: 12/17/18 16:01 Pantoprazole Sodium (Protonix Inj) 40 mg IVP DAILY [facility] Last Admin: 12/17/18 11:27 Dose: 40 mg Thiamine HCl (Vitamin B1 Tab) 100 mg PO BID [facility] Last Admin: 12/17/18 11:27 Dose: 100 mg Zolpidem Tartrate (Ambien) 5 mg PO HS PRN; Protocol PRN Reason: Insomnia Last Admin: 12/15/18 22:16 Dose: 5 mg - Labs Labs: 12/17/18 06:00 12/17/18 06:00 PT 13.2 SECONDS (9.4-12.5) H 12/15/18 16:20 INR 1.19 12/15/18 16:20 APTT 37.9 Seconds (26.9-38.3) 12/15/18 16:20 Attending/Attestation - Attestation I have personally seen and examined this patient.: Yes I have fully participated in the care of the patient.: Yes I have reviewed all pertinent clinical information, including history, physical exam and plan: Yes Notes (Text): 12/17/18 14:41 Attending note; patient Seen and examined with resident. Patient is alert and awake. Status post PEG placement today. Patient has Port-A-Cath placement yesterday. Denies any fevers, chills. Denies any nausea, vomiting. Tolerating pured diet. Patient is a 52 year old male with past medical history of Head and Neck cancer, hypertension, tobacco abuse, and alcohol abuse getting admitted for worsening of the left-sided neck swelling and dysphagia. 1. 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 Patient was diagnosed with carcinoma in [place] in June. Currently patient follows up with Dr. Hughes. PET CT scan was performed on showed hypermetabolic mass/masses involving the left nasopharynx, left palatine tonsil and left side of the tongue. MRI also showed extensive oropharyngeal mass with necrotic lymph nodes. Speech and swallow evaluation appreciated. Started on pured diet. 2. Case discussed with radiation oncology Dr. Jesus in detail. CT of neck and chest showed diffused centrilobar emphysema and large left oropharyngeal mass with multiple metastatic lymph nodes. s/p simulation. Follow up Radiation therapy per Dr. Jesus. 3. Active smoking; smoking cessation is strongly advised . Started on NicoDerm patch. 4. Alcohol abuse; complete alcohol cessation is strongly advised. New multivitamin, thiamine, folic acid. 5. Anxiety; Started on IV Ativan. 6. Pain management with IV morphine prn. Robitussin with codeine ordered. 7. COPD/Chronic smoking; pulmonary evaluation appreciated. Continue Brovana, Pulmicort and Singulair per pulmonary. 8. ENT evaluation appreciated. Monitor for symptoms of dysphagia. 9. Status post Port-A-Cath placement by Dr. Mg Sifuentes. 10. Status post PEG placement by Dr. Jinny MCLEOD today. Plan for Chemotherapy today. The diagnosis, treatment option explained to the patient in detail. Upon discharge patient will follow-up with Dr. Hughes.
[2018-12-17] MEDS ORDERED: Lidocaine PF 2% (5 ml) Inj (For Cardiac Arrhy) ONE (09:27)
[2018-12-17] MEDS: Multi Vitamins 15 mL UD Oral Solution PO SCH (11:27)
--- NOTE | 2018-12-17 12:48 | PN ---
DATE: 12/17/2018 PULMONARY PROGRESS NOTE REFERRING PHYSICIAN: Sofia Downs MD SUBJECTIVE: The patient is seen lying in bed, no acute distress. No overnight events reported. He is status post EGD with insertion of gastrostomy tube this morning. Also had placement of right internal jugular venous access port done yesterday. No headache, rhinitis, cough, shortness of breath, chest pain, abdominal pain, nausea, vomiting, diarrhea, or leg pain or swelling reported. OBJECTIVE: PHYSICAL EXAMINATION: VITAL SIGNS: Blood pressure 138/97, pulse 98, temperature 98, oxygen saturation 100% on room air. GENERAL: No acute distress. HEENT: Moist mucous membranes. Mallampati score of 4. Crowded airway. NECK: Supple. No JVD. LUNGS: Few scattered rhonchi. CARDIOVASCULAR: S1 and S2. ABDOMEN: Soft and nontender. No distention. No organomegaly. Positive G-tube. EXTREMITIES: No bilateral lower extremity edema. NEUROLOGIC: Awake, alert and verbal. Following commands. MEDICATIONS: Reviewed. Tylenol solution 320 mg p.o. every 4 hours p.r.n., DuoNeb 3 mL inhalation every 4 hours p.r.n., Norvasc 10 mg daily, Brovana 15 mcg every 12 hours, Pulmicort 0.5 mg solution every 12 hours, Librium 10 mg every 12 hours, dexamethasone 20 mg, diphenhydramine hydrochloride 25 mg, famotidine 20 mg in sodium chloride one-time dose, cisplatin 40 mg/mannitol 12.5 g with sodium chloride one-time dose, Flonase nasal spray at bedtime, folic acid 1 mg daily, fosaprepitant 150 mg and sodium chloride at 300 mL/hour one-time dose, Robitussin with Codeine 5 mL every 4 hours p.r.n., Ativan 0.5 mg IV push every 8 hours p.r.n., Singulair 10 mg at bedtime, morphine sulfate 2 mg IV push every 6 hours p.r.n. severe pain, multivitamin 15 mL p.o. daily, nicotine patch transdermal daily, paclitaxel 90 mg and sodium chloride one-time dose, Aloxi 0.25 mg IV push one-time dose, Protonix 40 mg IV push daily, thiamine 100 mg twice a day, Ambien 5 mg at bedtime p.r.n. LABORATORY DATA: Reviewed. WBC 10.3, RBC 5.09, hemoglobin 15.6, hematocrit 47.3, and platelets 369. Sodium 138, potassium 3.9, chloride 104, carbon dioxide 27, anion gap 10, BUN 8, creatinine 0.5, GFR greater than 60, random glucose 140, calcium 9.4, total bilirubin 0.6, AST 27, ALT 15, alkaline phosphatase 97, total protein 7.3, albumin 3.6, globulin 3.7, albumin-globulin ration 1, carcinoembryonic antigen 2.9. 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 Soft tissue neck CT shows large approximately 3.9 x 3.1 x 6.5 cm left oropharyngeal squamous cell carcinoma with multilevel pathologic metastatic lymph nodes. Orbit, face, neck MRI shows pathologic contralateral right level 2a lymph node measuring 1.3 cm, bulky pathologic solid and necrotic left level 1, 2 level 5 lymph nodes, bulky heterogeneously enhancing left oropharyngeal carcinoma. IMPRESSION AND PLAN: Oropharyngeal carcinoma, hypertension, active smoker, history of ethanol abuse, suspected chronic lung disease in this patient, hypertension. The patient status post esophagogastroduodenoscopy with insertion of gastrostomy tube this morning. Postop diagnosis shows duodenitis, duodenal ulcer, oropharyngeal lesion. Aspiration precaution. Continue smoking cessation, gastric prophylaxis. We will place the patient on Lovenox for deep venous thrombosis prophylaxis. Continue inhaled bronchodilators leukotriene inhibitor, Flonase nasal spray. We will reorder procalcitonin level to be done. This patient is to start chemotherapy/radiation therapy for oropharyngeal carcinoma. This patient was seen and examined with Dr. Hassan. Discussed assessment and plan as described above. This patient was seen and examined with Martin Ulloa, nurse practitioner. Discussed assessment and plan as described above. Thank you for this consult and we will follow with you. Martin Ulloa APN Quincy Hassan MD
[2018-12-17] MEDS ORDERED: CISPLATIN IV ONE (16:00)
[2018-12-17] MEDS ORDERED: PACLITAXEL IV ONE (16:00)
[2018-12-17] MEDS ORDERED: MANNITOL IV ONE (16:00)
[2018-12-17] MEDS ORDERED: Palonosetron 0.25 mg/5 mL Inj IVP ONE (16:00)
[2018-12-17] MEDS ORDERED: Dexamethasone 20 MG, DiphenhydrAMINE 25 MG, Famotidine 20 MG in Sodium Chloride 0.9% 50 ML IVPB ONE (16:00)
[2018-12-17] MEDS ORDERED: SODIUM CHLORIDE 0.9% IV ONE ×2 (16:00)
--- NOTE | 2018-12-17 18:42 | PN ---
DATE: 12/17/2018 This is [facility] visit on the medical floor. For Dr. Hughes. SUBJECTIVE: The patient is a 52-year-old male who is sitting up in bed, now status post port placement by Dr. Mg Sifuentes yesterday and status post PEG placement by Dr. Stearns earlier today with his chemotherapy to begin later on this afternoon with the patient also having seen Dr. Jesus, radiation oncologist for his treatment, also to begin with radiation as per her protocols. He reports that he has an urge to smoke cigarettes with nicotine patch on, however, he does not feel that he needs alcohol as this is also a consideration on admission with the patient reporting he will continue our recommendations for treatment to begin as per orders listed. OBJECTIVE: VITAL SIGNS: Temperature 98, pulse 98, respirations 20, blood pressure 138/97, pulse ox 100%. HEENT: Oropharynx with whitish plaques with large mass on the left side of the neck and head, no change. HEART: Regular rate. LUNGS: Clear. ABDOMEN: Soft, nontender. EXTREMITIES: No edema. SKIN: Warm and dry. NEUROLOGIC: Awake and alert. LABORATORY DATA: The patient's labs were done. White blood cell count 10.3, hemoglobin 15.6, hematocrit 47.2, platelet count 369,000 with a metabolic panel completely within normal range. CEA value of 2.9. INR done yesterday 1.1. 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 PLAN: For this patient after conversation with Dr. Hughes, to continue his present medical regimen as involved with the patient to be monitored clinically with prognosis for this patient guarded, with EtOH withdrawal precautions to continue. This is a complex patient with a comprehensive medically necessary and appropriate visit carried out in excess of 40 minutes with the patient's questions answered to his satisfaction. Leonardo Ramírez MD [facility] # [id number]
[2018-12-17] MEDS: POTASSIUM CHLORIDE IV SCH (23:02)
[2018-12-17] MEDS: SODIUM CHLORIDE 0.9% IV SCH (23:02)
[2018-12-17] MEDS: Fluticasone Nasal 50 mcg/Spray NS SCH (23:02)
[2018-12-17] MEDS: MAGNESIUM SULFATE IV SCH (23:02)
[2018-12-18] MEDS: POTASSIUM CHLORIDE IV SCH ×2 (01:49→06:22)
[2018-12-18] MEDS: SODIUM CHLORIDE 0.9% IV SCH ×2 (01:49→06:22)
[2018-12-18] MEDS: MAGNESIUM SULFATE IV SCH ×2 (01:49→06:22)
[2018-12-18 06:30] LABS: HEMOGLOBIN 13.7 g/dL (14.0-18.0); LYMPH # 0.3 (1.2-3.4); LYMPH % 3.1 % (22.0-35.0); MEAN CELL VOLUME 92.4 fl (80.0-105.0); MEAN CORPUSCULAR HEMOGLOBIN 30.6 pg (25.0-35.0); MEAN CORPUSCULAR HGB CONC 33.2 g/dl (31.0-37.0); MEAN PLATELET VOLUME 9.4 fl (7.0-11.0); MONO # 0.1 (0.1-0.6); MONO % 1.4 % (1.0-6.0); RBC 4.47 10^6/uL (3.5-6.1); RED CELL DISTRIBUTION WIDTH 12.7 % (11.5-14.5)
[2018-12-18 06:41] LABS: ALBUMIN 3.2 g/dL (3.0-4.8); ALT/SGPT 13 U/L (7-56); AST/SGOT 24 U/L (17-59); BLOOD UREA NITROGEN 9 mg/dL (7-21); CALCIUM 8.5 mg/dL (8.4-10.5); GFR NON-AFRICAN AMERICAN > 60
[2018-12-18] MEDS: Budesonide 0.5 mg/2 ml Inhal Susp UD IH SCH (07:42)
[2018-12-18] MEDS: Arformoterol 15 mcg/2 ml Inh Sol IH SCH (07:42)
[2018-12-18 08:22] VITALS: RESP 20
[2018-12-18] MEDS: Multi Vitamins 15 mL UD Oral Solution PO SCH (09:02)
[2018-12-18] MEDS: Enoxaparin 40 mg Syringe SC SCH (11:22)
--- NOTE | 2018-12-18 11:33 | PN ---
DATE: 12/18/2018 PULMONARY PROGRESS NOTE REFERRING PHYSICIAN: Sofia Downs MD SUBJECTIVE: The patient is seen lying in bed. No acute distress. No overnight events reported. Reports feeling well this morning. Started chemotherapy yesterday. The patient has been refusing nebulizer treatment. States it is because it irritates his mouth and throat when he takes the nebulizer treatment. Also, reports some discomfort around G-tube site. No headache, rhinitis, cough, shortness of breath, chest pain, abdominal pain, nausea, vomiting, diarrhea, leg pain or leg swelling reported. OBJECTIVE: VITAL SIGNS: Blood pressure 161/85, pulse 74, temperature 98.5, oxygen saturation 93%. GENERAL: No acute distress. HEENT: Moist mucous membranes. Mallampati score 4. Crowded airway. NECK: Supple. No JVD. LUNGS: Fair airflow bilaterally. CARDIOVASCULAR: S1, S2. ABDOMEN: Soft, nontender. No distention. No organomegaly. Positive G-tube site. No drainage noted. EXTREMITIES: No bilateral lower extremity edema. NEUROLOGIC: Awake and alert and verbal. Following commands. MEDICATIONS: Reviewed. Tylenol solution 320 mg every 4 hours p.r.n., DuoNeb 3 mL inhalation every 4 hours p.r.n., Norvasc 10 mg p.o. daily, Brovana 15 mcg every 12 hours, Pulmicort 0.5 mg inhalation every 12 hours, Librium 10 mg every 12 hours, Lovenox 40 mg subcutaneous daily, Flonase nasal spray at bedtime, folic acid 1 mg daily, Robitussin with Codeine 5 mL every 4 hours p.r.n., Ativan 0.5 mg IV push every 8 hours p.r.n., Singulair 10 mg p.o. at bedtime, morphine sulfate 2 mg IV push every 6 hours p.r.n., multivitamin vitamin C 15 mL daily, nicotine patch transdermal daily, Protonix 40 mg IV push daily, potassium chloride 10 mEq, magnesium sulfate 8 mEq and sodium chloride every 6 hours, thiamine 100 mg twice a day, Ambien 5 mg at bedtime p.r.n. LABORATORY DATA: Reviewed. WBC 10, RBC 4.47, hemoglobin 13.7, hematocrit 41.3, platelets 317. Sodium 139, potassium 4, chloride 106, carbon dioxide 27, anion gap 11, BUN 9, creatinine 0.4, GFR greater than 60, random glucose 143, calcium 8.5, total bilirubin 0.5, AST 24, ALT 13, alkaline phosphatase 76, total protein 6.7, albumin 3.2, globulin 3.3, albumin-globulin ration 1. IMPRESSION AND PLAN: Oropharyngeal carcinoma, hypertension, active smoker, history of ethanol abuse, suspected chronic lung disease in this patient, hypertension, status post gastrostomy tube placement. Aspiration precaution. Continue smoking cessation. Gastric prophylaxis. Deep venous thrombosis prophylaxis. Leukotriene inhibitors, Flonase nasal spray to continue. We will discontinue nebulizer treatment as the patient is reporting discomfort with nebulizer treatments. We will discontinue routine inhaled bronchodilators and continue the patient on as-needed DuoNeb nebulizer every four hours. Continue Hematology-Oncology followup. Gastroenterology followup. Procalcitonin level drawn and pending. The patient was seen and examined with Dr. Hassan. Discussed assessment and plan as described above. The patient was seen and examined by Martin Ulloa, nurse practitioner. Discussed assessment and plan as described above. Thank you for this consult. We will follow with you. Martin Ulloa APN Quincy Hassan MD
--- NOTE | 2018-12-18 11:38 | CP.PCM.PN ---
<Aida Lima - Last Filed: 12/18/18 11:39> Subjective - Date & Time of Evaluation Date of Evaluation: 12/18/18 Time of Evaluation: 07:00 - Subjective Subjective: GI Fellow PGY5 Progress Note Pt seen and evaluated at bedside, pt reports mild discomfort around PEG site this am. Pt requesting to eat and wants to go home. Denies any N/V, diarrhea or constipation, No F/C. ROS: A 12pt ROS was negative except as above. Objective - Vital Signs/Intake and Output Vital Signs (last 24 hours): Temp Pulse Resp BP Pulse Ox 98.5 F 74 20 161/85 H 93 L 12/18/18 08:21 12/18/18 08:21 12/18/18 08:21 12/18/18 11:23 12/18/18 08:21 Intake and Output: 12/18/18 12/18/18 06:59 18:59 Intake Total 240 Balance 240 - Medications Medications: Current Medications Acetaminophen (Tylenol 160mg/5ml Oral Soln) 320 mg PO Q4 PRN PRN Reason: Pain, Mild (1-3) Albuterol/Ipratropium (Duoneb 3 Mg/0.5 Mg (3 Ml) Ud) 3 ml IH Q4 PRN PRN Reason: Shortness of Breath Amlodipine Besylate (Norvasc) 10 mg PO DAILY [facility] Last Admin: 12/18/18 11:23 Dose: 10 mg Chlordiazepoxide (Librium) 10 mg PO Q12 [facility]; Protocol Last Admin: 12/18/18 11:22 Dose: Not Given Enoxaparin Sodium (Lovenox) 40 mg SC DAILY [facility]; Protocol Last Admin: 12/18/18 11:22 Dose: 40 mg Fluticasone Propionate (Flonase) 1 actuation NS HS [facility] Last Admin: 12/17/18 23:02 Dose: 1 spr Folic Acid (Folic Acid) 1 mg PO DAILY [facility] Last Admin: 12/18/18 11:22 Dose: 1 mg Guaifenesin/Codeine Phosphate (Robitussin W/Codeine) 5 ml PO Q4H PRN PRN Reason: Cough and congestion Potassium Chloride 10 meq/Magnesium Sulfate 8 meq/Sodium Chloride 1,006.9704 mls @ 167.828 mls/hr IV .Q6H [facility]YES[facility] Last Admin: 12/18/18 06:22 Dose: 167.828 mls/hr Lorazepam (Ativan) 0.5 mg IVP Q8 PRN; Protocol PRN Reason: Anxiety Last Admin: 12/16/18 10:17 Dose: 0.5 mg Montelukast Sodium (Singulair) 10 mg PO HS [facility] Last Admin: 12/17/18 23:01 Dose: 10 mg Morphine Sulfate (Morphine) 2 mg IVP Q6H PRN PRN Reason: Pain, severe (8-10) Last Admin: 12/16/18 21:49 Dose: 2 mg Multivitamins/Vitamin C (Multi-Delyn Liquid) 15 ml PO 0800 [facility] Last Admin: 12/18/18 09:02 Dose: 15 ml Nicotine (Nicoderm Cq) 1 patch TD DAILY PRN PRN Reason: URGE TO SMOKE Last Admin: 12/18/18 09:05 Dose: 1 patch Pantoprazole Sodium (Protonix Inj) 40 mg IVP DAILY [facility] Last Admin: 12/18/18 11:23 Dose: 40 mg Thiamine HCl (Vitamin B1 Tab) 100 mg PO BID [facility] Last Admin: 12/18/18 11:24 Dose: 100 mg Zolpidem Tartrate (Ambien) 5 mg PO HS PRN; Protocol PRN Reason: Insomnia Last Admin: 12/15/18 22:16 Dose: 5 mg - Labs Labs: 12/18/18 06:20 12/18/18 06:20 PT 13.2 SECONDS (9.4-12.5) H 12/15/18 16:20 INR 1.19 12/15/18 16:20 APTT 37.9 Seconds (26.9-38.3) 12/15/18 16:20 - Constitutional Appears: Non-toxic, No Acute Distress - Head Exam Head Exam: ATRAUMATIC, NORMAL INSPECTION, NORMOCEPHALIC - Eye Exam Eye Exam: EOMI, Normal appearance, PERRL Pupil Exam: PERRL - ENT Exam ENT Exam: Mucous Membranes Moist - Respiratory Exam Respiratory Exam: Clear to Ausculation Bilateral, NORMAL BREATHING PATTERN - Cardiovascular Exam Cardiovascular Exam: REGULAR RHYTHM, RRR, +S1, +S2 - GI/Abdominal Exam GI & Abdominal Exam: Tenderness, Normal Bowel Sounds. absent: Distended, Guarding Additional comments: PEG clean, dry intact - Rectal Exam Rectal Exam: Deferred - Extremities Exam Extremities Exam: Full ROM, Normal Inspection - Neurological Exam Neurological Exam: Alert, Awake, Oriented x3 - Psychiatric Exam Psychiatric exam: Normal Affect, Normal Mood - Skin Skin Exam: Dry, Intact, Normal Color, Warm Assessment and Plan - Assessment and Plan (Free Text) Assessment: Patient is a 52yo male with PMHX significant for squamous cell carcinoma of the tongue, tonsil and nasopharynx as well as hypertension and tobacco/EtOH abuse who presented to the hospital as the recommendation of his oncologist for deterioration 2/2 his known malignancy -Dysphaia 2/2 squamous cell carcinoma of the tongue/tonsil/nasopharynx -s/p PEG placement 12/17/18 -Okay to use PEG for feeds starting today/nutritional support, PEG bumper loosened a little today -Tobacco/EtOH abuse -HTN -S/P mapping with radiation oncology -Oncology following -Education provided on smoking/alcohol cessation <Marcelle Stearns V - Last Filed: 12/18/18 21:17> Objective - Vital Signs/Intake and Output Vital Signs (last 24 hours): Temp Pulse Resp BP Pulse Ox 98.5 F 74 20 161/85 H 93 L 12/18/18 08:21 12/18/18 08:21 12/18/18 08:21 12/18/18 11:23 12/18/18 08:21 - Medications Medications: Current Medications Acetaminophen (Tylenol 160mg/5ml Oral Soln) 320 mg PO Q4 PRN PRN Reason: Pain, Mild (1-3) Albuterol/Ipratropium (Duoneb 3 Mg/0.5 Mg (3 Ml) Ud) 3 ml IH Q4 PRN PRN Reason: Shortness of Breath Amlodipine Besylate (Norvasc) 10 mg PO DAILY [facility] Last Admin: 12/18/18 11:23 Dose: 10 mg Chlordiazepoxide (Librium) 10 mg PO Q12 [facility]; Protocol Last Admin: 12/18/18 11:22 Dose: Not Given Enoxaparin Sodium (Lovenox) 40 mg SC DAILY [facility]; Protocol Last Admin: 12/18/18 11:22 Dose: 40 mg Fluticasone Propionate (Flonase) 1 actuation NS HS [facility] Last Admin: 12/17/18 23:02 Dose: 1 spr Folic Acid (Folic Acid) 1 mg PO DAILY [facility] Last Admin: 12/18/18 11:22 Dose: 1 mg Guaifenesin/Codeine Phosphate (Robitussin W/Codeine) 5 ml PO Q4H PRN PRN Reason: Cough and congestion Lorazepam (Ativan) 0.5 mg IVP Q8 PRN; Protocol PRN Reason: Anxiety Last Admin: 12/16/18 10:17 Dose: 0.5 mg Montelukast Sodium (Singulair) 10 mg PO HS [facility] Last Admin: 12/17/18 23:01 Dose: 10 mg Morphine Sulfate (Morphine) 2 mg IVP Q6H PRN PRN Reason: Pain, severe (8-10) Last Admin: 12/16/18 21:49 Dose: 2 mg Multivitamins/Vitamin C (Multi-Delyn Liquid) 15 ml PO 0800 [facility] Last Admin: 12/18/18 09:02 Dose: 15 ml Nicotine (Nicoderm Cq) 1 patch TD DAILY PRN PRN Reason: URGE TO SMOKE Last Admin: 12/18/18 09:05 Dose: 1 patch Pantoprazole Sodium (Protonix Inj) 40 mg IVP DAILY [facility] Last Admin: 12/18/18 11:23 Dose: 40 mg Thiamine HCl (Vitamin B1 Tab) 100 mg PO BID [facility] Last Admin: 12/18/18 11:24 Dose: 100 mg Zolpidem Tartrate (Ambien) 5 mg PO HS PRN; Protocol PRN Reason: Insomnia Last Admin: 12/15/18 22:16 Dose: 5 mg - Labs Labs: 12/18/18 06:20 12/18/18 06:20 PT 13.2 SECONDS (9.4-12.5) H 12/15/18 16:20 INR 1.19 12/15/18 16:20 APTT 37.9 Seconds (26.9-38.3) 12/15/18 16:20 Attending/Attestation - Attestation I have personally seen and examined this patient.: Yes I have fully participated in the care of the patient.: Yes I have reviewed all pertinent clinical information, including history, physical exam and plan: Yes Notes (Text): This patient was seen and evaluated earlier along with the GI fellow. Status post PEG placement patient is tolerating the diet. Abdomen soft PEG site appears clean. Head and neck cancer follow-up as per oncology patient has duodenal ulcer. Continue PPI follow-up antral biopsy rule out H. pylori 12/18/18 21:15
[2018-12-19] MEDS: Morphine 2 mg/ml ISec IVP PRN (07:21)
[2018-12-19 07:47] LABS: BASO # 0.01 K/mm3 (0.0-2.0); BASO % 0.1 % (0.0-3.0); EOS % 0.2 % (1.5-5.0); HEMOGLOBIN 14.7 g/dL (14.0-18.0); LYMPH # 1.3 (1.2-3.4); LYMPH % 7.2 % (22.0-35.0); MEAN CELL VOLUME 92.4 fl (80.0-105.0); MEAN CORPUSCULAR HEMOGLOBIN 30.9 pg (25.0-35.0); MEAN CORPUSCULAR HGB CONC 33.5 g/dl (31.0-37.0); MEAN PLATELET VOLUME 9.5 fl (7.0-11.0); MONO # 0.7 (0.1-0.6); RBC 4.75 10^6/uL (3.5-6.1); RED CELL DISTRIBUTION WIDTH 12.7 % (11.5-14.5); WHITE BLOOD COUNT 18.1 10^3/uL (4.5-11.0)
[2018-12-19 08:14] LABS: ALBUMIN 3.5 g/dL (3.0-4.8); ALT/SGPT 12 U/L (7-56); AST/SGOT 23 U/L (17-59); BLOOD UREA NITROGEN 8 mg/dL (7-21); CALCIUM 8.8 mg/dL (8.4-10.5); GFR NON-AFRICAN AMERICAN > 60
--- NOTE | 2018-12-19 08:14 | PN ---
DATE: 12/19/2018 REFERRING PHYSICIAN: Sofia Downs MD SUBJECTIVE: The patient is seen lying in bed, asleep, easily arousable. No acute distress. No overnight events reported. No headache, rhinitis, cough, shortness of breath, chest pain, abdominal pain, nausea, vomiting, diarrhea, leg pain or leg swelling reported. The patient does report that he does have some mild mouth pain. OBJECTIVE: VITAL SIGNS: Blood pressure 161/85, pulse 74, temperature 98.5, oxygen saturation 93%. GENERAL: No acute distress. HEENT: Moist mucous membranes. Mallampati score 4. Crowded airway. NECK: Supple. No JVD. LUNGS: Fair airflow bilaterally. CARDIOVASCULAR: S1, S2. ABDOMEN: Soft, nontender. No distention. No organomegaly. Positive G-tube. EXTREMITIES: No bilateral lower extremity edema. NEUROLOGIC: Awake, alert, verbal. Following commands. MEDICATIONS: Reviewed. Tylenol solution 320 mg every 4 hours p.r.n mild pain., DuoNeb 3 mL inhalation every 4 hours p.r.n., Norvasc 10 mg p.o. daily, Librium 10 mg every 12 hours, Lovenox 40 mg subcutaneous daily, Flonase nasal spray at bedtime, folic acid 1 mg daily, Robitussin with Codeine 5 mL every 4 hours p.r.n., Ativan 0.5 mg IV push every 8 hours p.r.n., Singulair 10 mg p.o. at bedtime, morphine sulfate 2 mg IV push every 6 hours p.r.n., multivitamins vitamin C 15 mL daily, nicotine patch transdermal daily, Protonix 40 mg IV push daily, vitamin B1 at 100 mg twice a day, Ambien 5 mg at bedtime p.r.n. LABORATORY DATA: Reviewed. No new labs since yesterday. IMPRESSION AND PLAN: Oropharyngeal carcinoma, hypertension, active smoker, history of ethanol abuse, suspected chronic lung disease in this patient, hypertension, status post gastrostomy tube placement. Aspiration precautions. Continue smoking cessation. Gastric prophylaxis. Deep venous thrombosis prophylaxis. Continue leukotriene inhibitors and Flonase nasal spray. Continue inhaled bronchodilators as needed. Hematology-Oncology followup. Gastrointestinal followup. Procalcitonin level available and is negative and less than 0.05. The patient receiving chemotherapy/radiation therapy. The patient was seen and examined with Dr. Hassan. Discussed assessment and plan as described above. The patient was seen and examined by Martin Ulloa, nurse practitioner. Discussed assessment and plan as described above. Thank you for this consult. We will follow with you. Martin Ulloa APN Quincy Hassan MD
[2018-12-19] MEDS: Multi Vitamins 15 mL UD Oral Solution PO SCH (08:32)
[2018-12-19 08:38] VITALS: BP 165/89; PULSE 72; TEMP 97.3; O2SAT 96
[2018-12-19] MEDS: Enoxaparin 40 mg Syringe SC SCH (10:34)
--- NOTE | 2018-12-19 12:01 | CP.PCM.DIS ---
<Tamara Bai L - Last Filed: 12/19/18 15:38> Provider - Provider Date of Admission: 12/15/18 17:14 Attending physician: Sofia Downs MD Primary care physician: Natalie Johnston MD Consults: 12/15/18 15:53 Consult [Physician Consult] Routine Comment: Consulting Provider: Mike Ervin Consulting Physician: Mike Ervin Reason for Consult: head and neck cancer 12/15/18 15:54 Consult [Physician Consult] Routine Comment: Consulting Provider: Layne Leone Consulting Physician: Layne Leone Reason for Consult: tonsillar/ head and neck cancer Consult [Physician Consult] Routine Comment: Consulting Provider: Yuliet Jesus Consulting Physician: Yuliet Jesus Reason for Consult: head and neck cancer 12/15/18 16:05 Consult [Physician Consult] Routine Comment: Consulting Provider: Marcelle Stearns V Consulting Physician: Marcelle Stearns V Reason for Consult: need for Peg tube 12/15/18 20:06 Consult [Physician Consult] Routine Comment: Consulting Provider: Quincy Hassan Consulting Physician: Quincy Hassan Reason for Consult: pulm eval please 12/15/18 21:21 Nursing Referral for Palliative Care Routine Comment: Physician Instructions: Reason For Exam: EVALUATION 12/16/18 11:01 Physician Consult Routine Comment: Consulting Provider: Mg Sifuentes Consulting Physician: Mg Sifuentes Reason for Consult: Port access Time Spent in preparation of Discharge (in minutes): 35 Diagnosis - Discharge Diagnosis (1) Oral-mouth cancer Status: Chronic (2) Pharyngeal cancer Status: Chronic Hospital Course - Lab Results Lab Results: Most Recent Lab Values WBC 18.1 10^3/uL (4.5-11.0) H D 12/19/18 07:00 RBC 4.75 10^6/uL (3.5-6.1) 12/19/18 07:00 Hgb 14.7 g/dL (14.0-18.0) 12/19/18 07:00 Hct 43.9 % (42.0-52.0) 12/19/18 07:00 MCV 92.4 fl (80.0-105.0) 12/19/18 07:00 MCH 30.9 pg (25.0-35.0) 12/19/18 07:00 MCHC 33.5 g/dl (31.0-37.0) 12/19/18 07:00 RDW 12.7 % (11.5-14.5) 12/19/18 07:00 Plt Count 345 10^3/uL (120.0-450.0) 12/19/18 07:00 MPV 9.5 fl (7.0-11.0) 12/19/18 07:00 Neut % (Auto) 88.5 % (50.0-68.0) H 12/19/18 07:00 Lymph % (Auto) 7.2 % (22.0-35.0) L 12/19/18 07:00 [place] % (Auto) 4.0 % (1.0-6.0) 12/19/18 07:00 Eos % (Auto) 0.2 % (1.5-5.0) L 12/19/18 07:00 Baso % (Auto) 0.1 % (0.0-3.0) 12/19/18 07:00 Lymph # (Auto) 1.3 (1.2-3.4) 12/19/18 07:00 [place] # (Auto) 0.7 (0.1-0.6) H 12/19/18 07:00 Eos # (Auto) 0.0 (0.0-0.7) 12/19/18 07:00 Baso # (Auto) 0.01 K/mm3 (0.0-2.0) 12/19/18 07:00 Absolute Neuts (auto) 15.99 (1.4-6.5) H 12/19/18 07:00 Neutrophils % (Manual) 97 % (50.0-70.0) H 12/17/18 06:00 Band Neutrophils % 1 % (0-2) 12/17/18 06:00 Lymphocytes % (Manual) 1 % (22.0-35.0) L 12/17/18 06:00 Atypical Lymphs % 1 % (0.0-0.0) H 12/17/18 06:00 Monocytes % (Manual) TEST NOT PERFORMED 12/17/18 06:00 PT 13.2 SECONDS (9.4-12.5) H 12/15/18 16:20 INR 1.19 12/15/18 16:20 APTT 37.9 Seconds (26.9-38.3) 12/15/18 16:20 Sodium 137 mmol/L (132-148) 12/19/18 07:00 Potassium 3.4 mmol/L (3.6-5.0) L 12/19/18 07:00 Chloride 99 mmol/L (98-107) 12/19/18 07:00 Carbon Dioxide 27 mmol/L (21-33) 12/19/18 07:00 Anion Gap 14 (10-20) 12/19/18 07:00 BUN 8 mg/dL (7-21) 12/19/18 07:00 Creatinine 0.4 mg/dl (0.8-1.5) L 12/19/18 07:00 Est GFR ( Amer) > 60 12/19/18 07:00 Est GFR (Non-Af Amer) > 60 12/19/18 07:00 Random Glucose 113 mg/dL (70-110) H 12/19/18 07:00 Hemoglobin A1c 6.4 % (4.2-6.5) 12/15/18 16:20 Calcium 8.8 mg/dL (8.4-10.5) 12/19/18 07:00 Total Bilirubin 0.6 mg/dL (0.2-1.3) 12/19/18 07:00 AST 23 U/L (17-59) 12/19/18 07:00 ALT 12 U/L (7-56) 12/19/18 07:00 Alkaline Phosphatase 78 U/L (38-126) 12/19/18 07:00 Total Protein 7.0 g/dL (5.8-8.3) 12/19/18 07:00 Albumin 3.5 g/dL (3.0-4.8) 12/19/18 07:00 Globulin 3.4 gm/dL 12/19/18 07:00 Albumin/Globulin Ratio 1.0 (1.1-1.8) L 12/19/18 07:00 Triglycerides 115 mg/dL (35-160) 12/15/18 16:20 Cholesterol 149 mg/dL (130-200) 12/15/18 16:20 LDL Cholesterol Direct 64 mg/dL (0-129) 12/15/18 16:20 HDL Cholesterol 70 mg/dL (29-60) H 12/15/18 16:20 Carcinoembryonic Ag 2.9 ng/mL (0.0-3.0) 12/17/18 06:00 Procalcitonin < 0.05 NG/ML (0.19-0.49) L 12/18/18 06:20 - Hospital Course Hospital Course: On admission: 52 year old male with past medical history of Head and Neck cancer, hypertension, tobacco abuse, and alcohol abuse presented status post Dr. Leone calling his sister to bring him to the hospital for further workup and treatment of Head and Neck Cancer. Patient is originally from [place] but has been exploring treatment options in [place] as his sister lives in the area. Patient reports that in July, patient started to have dysphagia to solid but not liquid and had a sharp pain in his left ear improved with position changes of his head. He associated tinnitus in that ear and reports hearing loss in his right ear. He also reports having coughing up tissue from his mouth which relieves the pain in his neck. He has now been able to eat. Patient also complains of being unsteady on his feet recently. He has had 50 pound weight loss since July. He denies any fevers or chills. In terms of the history of his Head and Neck cancer, patient initially saw Dr. Benoit in [place] who wanted to excise the tumor but patient denied wanting to have this surgery as he would have to have a tracheostomy which he did not want. As a result, he looked for other treatment options and came up to [place] for more treatment options. Upon coming to [place], he saw Dr. Reid, ENT, Dr. Leone, Heme/Onc, and Dr. Jesus, Radiation Oncology. PET CT scan was performed on 11/11/18 at [facility] which was reported to show hypermetabolic mass/masses in volving the left nasopharynx, left palatine tonsil and left side of the tongue. Patient presents to the hospital for PEG tube placement and beginning chemotherapy and radiation. 12-point ROS was unremarkable except for what was mentioned above. During hospital stay: Prior PET scan from 11/10 was reviewed which showed hypermetabolic mass/masses involving the left nasopharynx, left palatine tonsil and left side of the tongue. Orbit/face/neck MRI was done which showed bulky heterogenous enhancing left oropharyngeal carcinoma from left tosnil sueprriourly involving the left nasopharnyx, superior involving the left nasopharynx, superior laterally retromolar trigone, anteriorly the entire left tongue also extending across the midline to involve the right paramedian tongue, involving the left floor of the mouth, left sublingual gland, soft palate and epiglottis. Inferiorly, the mass extends into the oropharynx, hypopharynx also involving the false cords with questionable involvement of the true cords. Also involved are left paraglottic space, left aryepiglottic fold and preglottic space. Laterally the mass involves the parapharyngeal and radio dispatcher spaces, involving the left superior submandibular gland, bulky pathologic solid and necrotic left level 1 2 level 5 lymph nodes, the largest superior level 5 lymph node. Pathological contralateral right level 2A lymph node. Patient was started on IV fluids. GI, hematology oncology, and radiation oncology were consulted. Patient underwent placement of ultrasound and fluoroscopic right internal jugular venous access port by interventional radiology. Patient underwent PEG tube placement by GI. Patient was started on nicotine patch and counseled patient on smoking cessation. Patient improved clinically throughout admission was optimized for discharge. Patient is to start chemotherapy and radiation therapy. Please see EMR for full summary. Discharge Exam - Additional Findings Additional findings: - Constitutional Appears: No Acute Distress - Head Exam Head Exam: ATRAUMATIC, NORMOCEPHALIC - Eye Exam Eye Exam: EOMI, Normal Appearance - Neck Exam Additional comments: neck mass - Respiratory Exam Respiratory Exam: Clear to Auscultation Bilateral, NORMAL BREATHING PATTERN. absent: Rales, Rhonchi, Wheezes - Cardiovascular Exam Cardiovascular Exam: REGULAR RHYTHM, +S1, +S2. absent: Clicks, Gallop, Rubs - GI/Abdominal Exam GI & Abdominal Exam: Normal Bowel Sounds, Soft. absent: Distended, Firm, Guarding, Tenderness - Extremities Exam Extremities exam: Positive for: full ROM, normal inspection. Negative for: tenderness - Neurological Exam Neurological exam: Alert, CN II-XII Intact, Oriented x3 - Skin Skin Exam: Dry, Intact, Normal Color Discharge Plan - Discharge Medications Prescriptions: Multivit-Min/FA/Lycopen/Lutein [Adults 50 Plus Multivitamin] 1 each PO DAILY 30 Days #30 tablet Nicotine 21 mg/24 hr [Nicoderm Cq] 21 mg TD DAILY #14 patch Ondansetron [Zofran] 4 mg PO Q8H PRN 7 Days #21 tab PRN Reason: Nausea/Vomiting oxyCODONE/Acetaminophen [Percocet 5/325 mg Tab] 1 tab PO BID PRN #10 tab PRN Reason: Pain, Moderate (4-7) Pantoprazole [Protonix] 40 mg PO DAILY 30 Days #30 ect - Follow Up Plan Condition: GUARDED Disposition: AGAINST MEDICAL ADVICE Instructions: Throat Cancer, Enteral Feeding, Percutaneous Endoscopic Gastrostomy (DC), Pureed Diet Additional Instructions: PATIENT TO FOLLOW UP WITH DR. LEONE NEXT WEEK. ANY NEW ONSET OF SYMPTOMS SUCH SHORTNESS OF BREATH, NAUSEA, VOMITING, DIZZINESS,DIFFICULTY SWALLOWING, REPORT BACK TO THE ER IMMEDIATELY. PATIENT TO CONTINUE DAILY RADIATION TREATMENT WEEKLY TAKE ALL MEDICATIONS PRESCRIBED. CONTINUE TO EAT PUREE DIET WITH ENSURE SUPPLEMENTS 3 TIMES A DAY WITH MEALS. ENSURE CAN BE UTILIZED THROUGH THE PEG WELL IF PO INTAKE IS DECREASED. BOLUS FEEDING TAUGHT TO YOU, IF YOUR CALORIC INTAKE BECOMES INCREASING LESS PLEASE UTILIZE THE PEG TUBE WITH SUPPLEMENTAL FEEDINGS WITH PROVIT 1.5 ML VIA PEG 6 CANS PER DAY WITH EACH MEAL. Referrals: Yuliet Jesus MD [Staff Provider] - Layne Leone MD [Staff Provider] - Natalie Johnston MD [Primary Care Provider] - <Sofia Downs - Last Filed: 12/19/18 18:16> Provider - Provider Date of Admission: 12/15/18 17:14 Attending physician: Sofia Downs MD Primary care physician: Natalie Johnston MD Consults: 12/15/18 15:53 Consult [Physician Consult] Routine Comment: Consulting Provider: Mike Ervin Consulting Physician: Mike Ervin Reason for Consult: head and neck cancer 12/15/18 15:54 Consult [Physician Consult] Routine Comment: Consulting Provider: Layne Leone Consulting Physician: Layne Leone Reason for Consult: tonsillar/ head and neck cancer Consult [Physician Consult] Routine Comment: Consulting Provider: Yuliet Jesus Consulting Physician: Yuliet Jesus Reason for Consult: head and neck cancer 12/15/18 16:05 Consult [Physician Consult] Routine Comment: Consulting Provider: Marcelle Stearns V Consulting Physician: Marcelle Stearns V Reason for Consult: need for Peg tube 12/15/18 20:06 Consult [Physician Consult] Routine Comment: Consulting Provider: Quincy Hassan Consulting Physician: Quincy Hassan Reason for Consult: pulm eval please 12/15/18 21:21 Nursing Referral for Palliative Care Routine Comment: Physician Instructions: Reason For Exam: EVALUATION 12/16/18 11:01 Physician Consult Routine Comment: Consulting Provider: Mg Sifuentes Consulting Physician: Mg Sifuentes Reason for Consult: [facility] Course - Lab Results Lab Results: Most Recent Lab Values WBC 18.1 10^3/uL (4.5-11.0) H D 12/19/18 07:00 RBC 4.75 10^6/uL (3.5-6.1) 12/19/18 07:00 Hgb 14.7 g/dL (14.0-18.0) 12/19/18 07:00 Hct 43.9 % (42.0-52.0) 12/19/18 07:00 MCV 92.4 fl (80.0-105.0) 12/19/18 07:00 MCH 30.9 pg (25.0-35.0) 12/19/18 07:00 MCHC 33.5 g/dl (31.0-37.0) 12/19/18 07:00 RDW 12.7 % (11.5-14.5) 12/19/18 07:00 Plt Count 345 10^3/uL (120.0-450.0) 12/19/18 07:00 MPV 9.5 fl (7.0-11.0) 12/19/18 07:00 Neut % (Auto) 88.5 % (50.0-68.0) H 12/19/18 07:00 Lymph % (Auto) 7.2 % (22.0-35.0) L 12/19/18 07:00 [place] % (Auto) 4.0 % (1.0-6.0) 12/19/18 07:00 Eos % (Auto) 0.2 % (1.5-5.0) L 12/19/18 07:00 Baso % (Auto) 0.1 % (0.0-3.0) 12/19/18 07:00 Lymph # (Auto) 1.3 (1.2-3.4) 12/19/18 07:00 [place] # (Auto) 0.7 (0.1-0.6) H 12/19/18 07:00 Eos # (Auto) 0.0 (0.0-0.7) 12/19/18 07:00 Baso # (Auto) 0.01 K/mm3 (0.0-2.0) 12/19/18 07:00 Absolute Neuts (auto) 15.99 (1.4-6.5) H 12/19/18 07:00 Neutrophils % (Manual) 97 % (50.0-70.0) H 12/17/18 06:00 Band Neutrophils % 1 % (0-2) 12/17/18 06:00 Lymphocytes % (Manual) 1 % (22.0-35.0) L 12/17/18 06:00 Atypical Lymphs % 1 % (0.0-0.0) H 12/17/18 06:00 Monocytes % (Manual) TEST NOT PERFORMED 12/17/18 06:00 PT 13.2 SECONDS (9.4-12.5) H 12/15/18 16:20 INR 1.19 12/15/18 16:20 APTT 37.9 Seconds (26.9-38.3) 12/15/18 16:20 Sodium 137 mmol/L (132-148) 12/19/18 07:00 Potassium 3.4 mmol/L (3.6-5.0) L 12/19/18 07:00 Chloride 99 mmol/L (98-107) 12/19/18 07:00 Carbon Dioxide 27 mmol/L (21-33) 12/19/18 07:00 Anion Gap 14 (10-20) 12/19/18 07:00 BUN 8 mg/dL (7-21) 12/19/18 07:00 Creatinine 0.4 mg/dl (0.8-1.5) L 12/19/18 07:00 Est GFR ( Amer) > 60 12/19/18 07:00 Est GFR (Non-Af Amer) > 60 12/19/18 07:00 Random Glucose 113 mg/dL (70-110) H 12/19/18 07:00 Hemoglobin A1c 6.4 % (4.2-6.5) 12/15/18 16:20 Calcium 8.8 mg/dL (8.4-10.5) 12/19/18 07:00 Total Bilirubin 0.6 mg/dL (0.2-1.3) 12/19/18 07:00 AST 23 U/L (17-59) 12/19/18 07:00 ALT 12 U/L (7-56) 12/19/18 07:00 Alkaline Phosphatase 78 U/L (38-126) 12/19/18 07:00 Total Protein 7.0 g/dL (5.8-8.3) 12/19/18 07:00 Albumin 3.5 g/dL (3.0-4.8) 12/19/18 07:00 Globulin 3.4 gm/dL 12/19/18 07:00 Albumin/Globulin Ratio 1.0 (1.1-1.8) L 12/19/18 07:00 Triglycerides 115 mg/dL (35-160) 12/15/18 16:20 Cholesterol 149 mg/dL (130-200) 12/15/18 16:20 LDL Cholesterol Direct 64 mg/dL (0-129) 12/15/18 16:20 HDL Cholesterol 70 mg/dL (29-60) H 12/15/18 16:20 Carcinoembryonic Ag 2.9 ng/mL (0.0-3.0) 12/17/18 06:00 Procalcitonin < 0.05 NG/ML (0.19-0.49) L 12/18/18 06:20 Attending/Attestation - Attestation I have personally seen and examined this patient.: Yes I have fully participated in the care of the patient.: Yes I have reviewed all pertinent clinical information, including history, physical exam and plan: Yes Notes (Text): 12/19/18 18:13 Attending note; patient Seen and examined with resident. Patient is alert and awake. Status post chemotherapy. Currently tolerating diet. Denies any nausea, vomiting. Denies any fevers, chills Patient is a 52 year old male with past medical history of Head and Neck cancer, hypertension, tobacco abuse, and alcohol abuse getting admitted for worsening of the left-sided neck swelling and dysphagia. 1. 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 Status post chemotherapy. Doing well without complications. Tolerating pured diet. 2. Case discussed with radiation oncology Dr. Jesus in detail. CT of neck and chest showed diffused centrilobar emphysema and large left oropharyngeal mass with multiple metastatic lymph nodes. s/p simulation. Follow up Radiation therapy per Dr. Jesus. Follow-up with Dr. Jesus on Thursday. 3. Active smoking; smoking cessation is strongly advised . Started on NicoDerm patch. 4. Alcohol abuse; complete alcohol cessation is strongly advised. on mult ivitamin, thiamine, folic acid. 5. Anxiety; Started on IV Ativan. 6. Pain management with IV morphine prn. 7. COPD/Chronic smoking; pulmonary evaluation appreciated. Continue Brovana, Pulmicort and Singulair per pulmonary. 8. ENT evaluation appreciated. Monitor for symptoms of dysphagia. 9. Status post Port-A-Cath placement by Dr. Mg Sifuentes. 10. Status post PEG placement by Dr. Stearns. Educated about PEG feeding by nursing staff. Dietitian evaluation appreciated. Patient can take Ensure for now. Patient was also educated to supplement with Pivot. Prescription given. 11. s/p chemotheray with cisplatin and paclitaxel. Patient was evaluated by oncology yesterday. Patient will follow-up with oncology on Thursday. Patient will be discharged home. Prescriptions given. The diagnosis, treatment option explained to the patient in detail. Upon discharge patient will follow-up with Dr. Leone and Dr. Jesus. 12/19/18 18:15
[2018-12-19] MEDS ORDERED: Potassium Chloride 40 mEq/30 ml LIQ UD PO STA (12:13)
--- NOTE | 2018-12-19 16:14 | CP.PCM.PN ---
<Marlee Perez - Last Filed: 12/19/18 16:45> Subjective - Date & Time of Evaluation Date of Evaluation: 12/18/18 Time of Evaluation: 09:30 - Subjective Subjective: INTERNAL MEDICINE PROGRESS NOTE FOR DR. MADDIE Perez PGY1 Pt seen and examined at bedside this am. Pt underwent PEG placement & IR port placement without complications. He received chemotherapy today. He is denying complaints today and requesting to go home Objective - Vital Signs/Intake and Output Vital Signs (last 24 hours): Temp Pulse Resp BP Pulse Ox 97.3 F L 72 20 165/89 H 96 12/19/18 08:38 12/19/18 08:38 12/19/18 08:38 12/19/18 10:31 12/19/18 08:38 Intake and Output: 12/19/18 12/19/18 06:59 18:59 Intake Total 240 Balance 240 - Labs Labs: 12/19/18 07:00 12/19/18 07:00 PT 13.2 SECONDS (9.4-12.5) H 12/15/18 16:20 INR 1.19 12/15/18 16:20 APTT 37.9 Seconds (26.9-38.3) 12/15/18 16:20 - Constitutional Appears: Well, Non-toxic, Chronically Ill - Head Exam Head Exam: NORMAL INSPECTION, NORMOCEPHALIC - Eye Exam Eye Exam: Normal appearance - ENT Exam ENT Exam: Mucous Membranes Moist Additional comments: venous port in place - Neck Exam Neck Exam: Normal Inspection - Respiratory Exam Respiratory Exam: Clear to Ausculation Bilateral, NORMAL BREATHING PATTERN - Cardiovascular Exam Cardiovascular Exam: REGULAR RHYTHM, +S1, +S2 - GI/Abdominal Exam GI & Abdominal Exam: Soft. absent: Tenderness Additional comments: PEG tube in place. Nonerythematous, no purulence, appear patent. - Extremities Exam Extremities Exam: Normal Inspection. absent: Calf Tenderness - Back Exam Back Exam: NORMAL INSPECTION - Neurological Exam Neurological Exam: Alert, Awake, Oriented x3 - Psychiatric Exam Psychiatric exam: Normal Affect, Normal Mood - Skin Skin Exam: Dry, Intact, Warm Assessment and Plan - Assessment and Plan (Free Text) Assessment: 52 year old male with past medical history of Head and Neck cancer, hypertensio n, tobacco abuse, and alcohol abuse presented status post Dr. Hughes calling his sister to bring him to the hospital for further workup and treatment of Head and Neck Cancer Plan: Dysphagia -2/2 underlying nasopharyngeal swelling/mass -s/p PEG placement 12/17/18 -Appreciate nutrition consult for formula & volume. Change dressing daily, flush PEG with 60ml water, clean site w/ soap/water & dry thoroughly, per GI recs -GI following Squamous cell carcinoma of the left tonsil -PET 11/10: hypermetabolic mass/masses involving the left nasopharynx, left palatine tonsil and left side of the tongue -CT Neck w/w/o contrast 12/15: left oral pharyngeal/left supraglottic malignancy. Additional large neoplasm in the soft tissues of the left neck with possible cy stic necrotic lymphadenopathy, atheromatous plaquing in the carotid bulbs and origins of the ICAs bilaterally. Evidence of advanced degenerative disc disease at C5-6, C6-7, and C7-T1 -Chest CT 12/15: unremarkable -Orbit/face/neck MRI 12/16: bulky heterogenous enhancing left oropharyngeal carcinoma from left tosnil sueprriourly involving the left nasopharnyx, superior involving the left nasopharynx, superior laterally retromolar trigone, anteriorly the entire left tongue also extending across the midline to involve the right paramedian tongue, involving the left floor of the mouth, left sublingual gland, soft palate and epiglottis. Inferiorly, the mass extends into the oropharynx, hypopharynx also involving the false cords with questionable involvement of the true cords. Also involved are left paraglottic space, left aryepiglottic fold and preglottic space. Laterally the mass involves the parapharyngeal and photofinishing laboratory worker spaces, involving the left superior submandibular gland, bulky pathologic solid and necrotic left level 1 2 level 5 lymph nodes, the largest superior level 5 lymph node. Pathological contralateral right level 2A lymph node -S/p port placement. Chemoradiation per heme/onc, rad/onc Dr. Hughes and Dr. Jesus. -Started on paclitaxel and cisplatin -Continue robitussin with codeine Q4PRN for pain and congestion -Continue morphine 2 mg Q6PRN for breakthrough pain -Continue fosaprepitant, palonosetron, and dexamethasone for nausea -GI, Dr. Stearns, consulted for recommendations -Heme/Onc, Dr. Hughes, consulted for recommendations -Radiation Oncology, Dr. Jesus, consulted for recommendations. -ENT, Dr. Ervin, consulted for further recommendations. -IR, Dr. Sifuentes, consulted for further recommendations. -Pulmonology, Dr. Hassan, consulted for further recommendations - Pt counselled on close outpatient followup Duodenal Ulcer - Non-bleeding with clean ulcer base ([place] Class III) -Continue IVP protonix -f/u antral biopsy, r/o H. Pylor -GI following Hypertension -Continue amlodipine 10 mg Active tobacco abuse -Counseled on smoking cessation -Continue nicotine patch Alcohol Abuse -Patient's CIWA has been 0 -Counselled on complete ETOH cessation -Continue librium 10 mg Q12 and ativan 0.5 mg Q8PRN for withdrawal symptoms -Continue with thiamine, folate, and MVI Insomnia -Ambien 5 mg HS PRN for insomnia COPD - Continue duoneb, brovana, pulmicort, flonase, singulair - Appreciate pulmonology recs DVT/GI: Lovenox/Protonix Dispo: Pt to f/u with Heme/Onc & IR for continued chemoradiation therapy & pt to f/u at [facility] Case reviewed with attending physician, Dr. Maddie Perez PGY1 <Sofia Downs - Last Filed: 12/19/18 18:12> Objective - Vital Signs/Intake and Output Vital Signs (last 24 hours): Temp Pulse Resp BP Pulse Ox 97.3 F L 72 20 165/89 H 96 12/19/18 08:38 12/19/18 08:38 12/19/18 08:38 12/19/18 10:31 12/19/18 08:38 Intake and Output: 12/19/18 12/19/18 06:59 18:59 Intake Total 240 Balance 240 - Labs Labs: 12/19/18 07:00 12/19/18 07:00 PT 13.2 SECONDS (9.4-12.5) H 12/15/18 16:20 INR 1.19 12/15/18 16:20 APTT 37.9 Seconds (26.9-38.3) 12/15/18 16:20 Attending/Attestation - Attestation I have personally seen and examined this patient.: Yes I have fully participated in the care of the patient.: Yes I have reviewed all pertinent clinical information, including history, physical exam and plan: Yes Notes (Text): 12/19/18 18:11 Attending note; patient Seen and examined with resident. Patient is alert and awake. Status post PEG placement today. Patient has Port-A-Cath placement yesterday. Denies any fevers, chills. Denies any nausea, vomiting. Tolerating pured diet. Patient is a 52 year old male with past medical history of Head and Neck cancer, hypertension, tobacco abuse, and alcohol abuse getting admitted for worsening of the left-sided neck swelling and dysphagia. 1. 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 Patient was diagnosed with carcinoma in [place] in June. Currently patient follows up with Dr. Hughes. PET CT scan was performed on 11/11/18 showed hypermetabolic mass/masses involving the left nasopharynx, left palatine tonsil and left side of the tongue. MRI also showed extensive oropharyngeal mass with necrotic lymph nodes. Speech and swallow evaluation appreciated. Started on pured diet. 2. Case discussed with radiation oncology Dr. Jesus in detail. CT of neck and chest showed diffused centrilobar emphysema and large left oropharyngeal mass with multiple metastatic lymph nodes. s/p simulation. Follow up Radiation ther apy per Dr. Jesus. 3. Active smoking; smoking cessation is strongly advised . Started on NicoDerm patch. 4. Alcohol abuse; complete alcohol cessation is strongly advised. New multivitamin, thiamine, folic acid. 5. Anxiety; Started on IV Ativan. 6. Pain management with IV morphine prn. Robitussin with codeine ordered. 7. COPD/Chronic smoking; pulmonary evaluation appreciated. Continue Brovana, Pulmicort and Singulair per pulmonary. 8. ENT evaluation appreciated. Monitor for symptoms of dysphagia. 9. Status post Port-A-Cath placement by Dr. Mg Sifuentes. 10. Status post PEG placement by Dr. Jinny MCLEOD today. 11. s/p chemotheray with cisplatin and paclitaxel yesterday. Currently getting IV potassium and mag supplementation. Denies any nausea, vomiting. Will follow up with oncology. The diagnosis, treatment option explained to the patient in detail. Upon discharge patient will follow-up with Dr. Hughes.
== END 2018-12-19 14:33 | disposition home or self-care (01) | DRG 110 ==
LOC: ED 14:10 → ERH 17:14 → 3RNO 18:47
PROVIDERS: ADMIT Internal Medicine; ATTEND Internal Medicine
PROC: 0JH63WZ Insertion of Totally Implantable Vascular Access Device into Chest Subcutaneous Tissue and Fascia, Percutaneous Approach (ICD-10-PCS; 2018-12-16)
PROC: 02HV33Z Insertion of Infusion Device into Superior Vena Cava, Percutaneous Approach (ICD-10-PCS; 2018-12-16)
PROC: B543ZZA Ultrasonography of Right Jugular Veins, Guidance (ICD-10-PCS; 2018-12-16)
PROC: 3E04305 Introduction of Other Antineoplastic into Central Vein, Percutaneous Approach (ICD-10-PCS; 2018-12-17)
PROC: 0DH63UZ Insertion of Feeding Device into Stomach, Percutaneous Approach (ICD-10-PCS; principal; 2018-12-17 08:00)
DX: C10.9 Malignant neoplasm of oropharynx, unspecified (principal); C77.9 Secondary and unspecified malignant neoplasm of lymph node, unspecified; I71.2 Thoracic aortic aneurysm, without rupture; R13.10 Dysphagia, unspecified; K26.9 Duodenal ulcer, unspecified as acute or chronic, without hemorrhage or perforation; J43.2 Centrilobular emphysema; K29.70 Gastritis, unspecified, without bleeding; I10 Essential (primary) hypertension; R62.7 Adult failure to thrive; G89.3 Neoplasm related pain (acute) (chronic); F12.90 Cannabis use, unspecified, uncomplicated; F17.210 Nicotine dependence, cigarettes, uncomplicated; F10.10 Alcohol abuse, uncomplicated; M50.33 Other cervical disc degeneration, cervicothoracic region; F41.9 Anxiety disorder, unspecified; G47.00 Insomnia, unspecified; Z80.3 Family history of malignant neoplasm of breast; Z80.1 Family history of malignant neoplasm of trachea, bronchus and lung

== ENCOUNTER 2018-12-22 17:10 | Outpatient (CLI) | payer MEDICAID, OTHER | END 2018-12-22 17:11 | disposition home or self-care (01) | LOC: OPLAB 17:10 ==